=== PATIENT | male | born 1935 | race Caucasian/White ===

== ENCOUNTER 2020-05-14 14:51 | Emergency (ER) | payer MEDICARE, SELFPAY ==
[2020-05-14 15:10] VITALS: BP 152/80; PULSE 78; RESP 16; TEMP 37; O2SAT 100
--- NOTE | 2020-05-14 15:29 | ED.MALEGU ---
HPI - Male Genitourinary General Chief complaint: Urogenital-Male Stated complaint: blood in castro catheter Time Seen by Provider: 05/14/20 15:18 History of Present Illness HPI Narrative: He recently had castro catheter placed due to what sounds like hematuria and bladder outlet obstruction. He began noticing blood in his urine yesterday and today it has been dark red with some small clots. He denies any pain or fever. Related Data Home Medications Medication Instructions Recorded Confirmed buspirone 10 mg 05/14/20 duloxetine mg PO 05/14/20 lorazepam 05/14/20 tamsulosin mg PO 05/14/20 terbinafine HCl 250 mg 05/14/20 Allergies Allergy/AdvReac Type Severity Reaction Status Date / Time celecoxib Allergy Intermediate FACIAL Verified 05/14/20 15:35 RASH/REDNESS budesonide Allergy Unknown CARDIAC Verified 05/14/20 15:35 PROBLEMS iodine Allergy Unknown Unknown Verified 05/14/20 15:35 Contrast Media Allergy Intermediate TACHYCARDIA Uncoded 05/14/20 15:35 Review of Systems Review of Systems: All systems reviewed & are unremarkable except as noted in HPI and below Constitutional: Constitutional: Denies fever(s) Cardiovascular: Cardiovascular: Denies chest pain Respiratory: Respiratory: Denies cough and Denies dyspnea Gastrointestinal: Gastrointestinal: Denies abdominal pain Genitourinary: Genitourinary: Reports hematuria Musculoskeletal: Musculoskeletal: Denies back pain [facility] Family History Family History Father Family history of malignant neoplasm Other Family history of cardiovascular disease Social History Social History Smoking status: Never smoker Alcohol intake: never Gender identity (if verbalized by the patient): Male Exam Const: General: healthy appearing, no acute distress and alert Orientation/consciousness: patient oriented x3 HENMT: Head: normal to inspection Neck: Neck: normal visual inspection and no lymphadenopathy Chest: Chest palpation & inspection: no tenderness Resp: Effort & Inspection: normal respiratory effort Auscultation: clear to auscultation bilaterally, no rales, no rhonchi and no wheezes Cardio: Jugular venous distension: no JVD Rate: regular rate Rhythm: regular rhythm Heart sounds: no murmurs GI: Inspection: non-distended GI Palp: Yes Soft to palpation and No Tenderness to palpation present (GI) Urinary Catheter: Urinary Catheter: patent and draining and urine red Skin: General skin exam: normal color Neuro: General: patient oriented x3 and moves all extremities Speech: normal speech Extrem: General: no edema Psych: Appearance: well kempt Affect: normal affect Course Vital Signs Vital signs: Vital Signs Temperature 37.0 C 05/14/20 15:10 Pulse Rate 78 05/14/20 15:10 Respiratory Rate 16 05/14/20 15:10 Blood Pressure 152/80 H 05/14/20 15:10 Pulse Oximetry 100 05/14/20 15:10 Temperature 37.0 C 05/14/20 15:10 Pulse Rate 75 05/14/20 18:24 Respiratory Rate 18 05/14/20 18:24 Blood Pressure 156/78 H 05/14/20 18:24 Pulse Oximetry 100 05/14/20 18:24 Procedures Ear Wax Removal Right Ear: Cerumenolytic Used: other (hydrogenperoxide tapwater mix) Results: Re-examined: some cerumen remains TM Examination: TM(s) intact, normal appearance Ear Canal Exam: atraumatic Patient Tolerated Procedure: well Complications: no problems Technique: ear canal irrigated Additional Comments: hearing improved after procedure MDM - Male Genitourinary MDM Narrative Medical decision making narrative: UA consistent with infection. Urine pink with no clots after CBI. Given dose of ceftriaxone. Will continue antibiotics at home. He has follow-up with a urologist next week. Medical Records Attestation: I reviewed the patient's medical records. Lab Data Attest
[2020-05-14 15:58] LABS: Add Urine Microscopic? YES; Appearance Urine Clear (Clear); Bacteria Urine 1+ /hpf; Bilirubin Urine Negative (Negative); Blood Urine 2+ (Negative); Color Urine Red (Yellow); Glucose Urine UA 1+ mg/dL (Negative); Ketones Urine Trace mg/dL (Negative); Leukocyte Esterase Ur 1+ LEU/UL (Negative); Nitrate Urine Positive (Negative); Protein Urine 2+ mg/dL (Negative); RBC Urine >75 /hpf (0-2); Specific Grav Ur 1.015 (1.001-1.035); Urobilinogen Urine Negative mg/dL (<2.0); WBC Urine >75 /hpf
--- NOTE | 2020-05-14 16:11 | PC.NURSE ---
Per Dr. Craft pts bladder needs to be irrigated until clear. This RN and another RN went into pts room and irrigated bladder. Small clots and red urine came back out. Put new leg cath bag on pt. Pt tolerated procedure well. Informed Dr. Craft of this. Will continue to monitor,
[2020-05-14] MEDS: LIDOCAINE HCL 2% GEL UROJET 10 ML PKG (17:53)
[2020-05-14 18:24] VITALS: BP 156/78; PULSE 75; RESP 18; O2SAT 100
[2020-05-14 20:02] VITALS: BP 155/80; PULSE 81; RESP 16; TEMP 37.1; O2SAT 99
== END 2020-05-14 20:05 | disposition home or self-care (01) ==
PROVIDERS: Emergency Provider Emergency Medicine; PCP Family Medicine Adolescent Medicine
DX: T83.511A Infection and inflammatory reaction due to indwelling urethral catheter, initial encounter (principal); H61.21 Impacted cerumen, right ear
CPT/HCPCS: 51700; 69209; 81001; 87077; 87086; 87088; 87186; 99284; J0696

== ENCOUNTER → 2021-05-04 11:53 | Outpatient (CLI) | payer MEDICARE, SELFPAY ==
--- NOTE | ~2021-05-04 | MR_ITS ---
EXAMINATION: MR brain/brain stem wo con DATE: 05/04/2021 12:32 INDICATION: Slurred speech. Other anesthesia. TECHNIQUE: Magnetic resonance imaging (MRI) of the brain and brainstem was performed without intraven ous contrast. Sequences included sagittal and axial T1-weighted FSE, axial diffusion-weighted FS EPI, axial T2*-weighted GRE, axial T2-weighted FLAIR Propeller, and axial T2-weighted Propeller. Apparent diffusion coefficient (ADC) maps were created. COMPARISON: None. FINDINGS: There are scattered areas of nonspecific increased T2-weighted signal intensity in the cere bral white matter and shirley. There is no intracranial hemorrhage, acute infarction, or abnormal intrac ranial mass lesion. The ventricles are normal in size. The orbits are normal. The paranasal sinuses a re clear. The mastoid air cells are normal. IMPRESSION: 1. Moderate nonspecific cerebral white matter disease and pontine disease, which likely represents ch ronic small vessel ischemic disease. Reviewed, dictated and finalized at location A. IMPRESSION: 1. Moderate nonspecific cerebral white matter disease and pontine disease, whic h likely represents chronic small vessel ischemic disease.
== END ==
PROVIDERS: Visit Provider Nurse Practitioner Family
DX: R41.3 Other amnesia (principal); R93.0 Abnormal findings on diagnostic imaging of skull and head, not elsewhere classified
CPT/HCPCS: 70551

== ENCOUNTER 2022-03-25 21:56 | Emergency (ER) | payer MEDICARE, SELFPAY ==
[2022-03-25 22:00] VITALS: BP 174/79; PULSE 73; RESP 16; O2SAT 100
--- NOTE | 2022-03-25 22:48 | ED.LOWEXIN ---
HPI - Extremity Injury (Lower) General Chief Complaint: Extremity Injury, Lower Stated Complaint: LAC TO TOE - CUT WITH SCISSORS Time Seen by Provider: 03/25/22 22:08 Source: patient Mode of arrival: EMS Limitations: no limitations History of Present Illness HPI Narrative: This is a 86 year old male that presents to the ER for a laceration to the left third toe sustained just prior to arrival. Reports he was trying to cut his toenail with scissors and accidentally cut the tip of his toe. Reports bleeding and pain to the area. He is not up-to-date on tetanus. Denies decreased range of motion or numbness. Related Data Home Medications Medication Instructions Recorded Confirmed buspirone 10 mg tablet 10 mg 05/14/20 duloxetine 60 mg capsule,delayed mg PO 05/14/20 release lorazepam 0.5 mg tablet 05/14/20 tamsulosin 0.4 mg capsule mg PO 05/14/20 terbinafine HCl 250 mg tablet 250 mg 05/14/20 Allergies Allergy/AdvReac Type Severity Reaction Status Date / Time celecoxib Allergy Intermediate FACIAL Verified 05/14/20 15:35 RASH/REDNESS budesonide Allergy Unknown CARDIAC Verified 05/14/20 15:35 PROBLEMS iodine Allergy Unknown Unknown Verified 05/14/20 15:35 Contrast Media Allergy Intermediate TACHYCARDIA Uncoded 05/14/20 15:35 Review of Systems Review of Systems: CONSTITUTIONAL: Denies fever SKIN: Reports laceration NEUROLOGIC: Denies numbness All systems reviewed & are unremarkable except as noted in HPI and below PMFSH Past Medical History Medical History (Updated 03/25/22 @ 22:53 by Winnie Singh PA-C) History of anxiety History of BPH Family History Family History Father Family history of malignant neoplasm Other Family history of cardiovascular disease Social History Social History Smoking status: Never smoker Alcohol intake: never Gender identity (if verbalized by the patient): Male Exam Narrative: GENERAL: Well-appearing, well-nourished, and in no acute distress. HEAD: Normocephalic, atraumatic. EYES: EOMI. EXTREMITIES: Normal range of motion. Normal DP pulses. Left third toe with tip skin avulsed SKIN: Warm, dry, no rash. NEURO: No focal deficits. Alert and oriented x3. PSYCH: Normal mood and affect Course Vital Signs Vital signs: Vital Signs Pulse Rate 73 03/25/22 22:00 Respiratory Rate 16 03/25/22 22:00 Blood Pressure 174/79 H 03/25/22 22:00 Pulse Oximetry 100 03/25/22 22:00 Oxygen Delivery Room Air 03/25/22 22:00 Pulse Rate 73 03/25/22 22:00 Respiratory Rate 16 03/25/22 22:00 Blood Pressure 174/79 H 03/25/22 22:00 Pulse Oximetry 100 03/25/22 22:00 Oxygen Delivery Room Air 03/25/22 22:00 Procedures Laceration Laceration 1: Date: 03/25/22 Time: 22:51 Site: lower extremity Side (If applicable): left Size (cm): 1 Description: other (Skin avulsed) Depth: simple, single layer ====== Skin Level ====== ====== Subcutaneous Layer ====== ====== Muscle Layer ====== ====== Tendon Layer ====== Dressing: Wound was irrigated and bleeding controlled with silver nitrate and then bandaged MDM - Extremity Injury (Lower) MDM Narrative Medical decision making narrative: Patient presents to the emergency department after avulsing the tip skin of his left third toe. He was updated on tetanus. His wound was irrigated. He had some mild oozing of blood this was controlled with silver nitrate and his wound was bandaged. He was educated on wound care. He is to follow-up with primary care doctor. He was given warnings to the ER At present only noted to be hypertensive in the ED. Instructed to continue to monitor this and follow-up with primary for this as well Critical Care Time Critical Care Time Critical Care Time: No Discharge Plan
[2022-03-25] MEDS: TETANUS,DIPHTHERIA,AC PERTUSSIS ADULT (0.5 ML) BOOSTRIX IM (23:15)
[2022-03-25 23:29] VITALS: BP 179/83; PULSE 65; RESP 18; O2SAT 100
== END 2022-03-25 23:32 | disposition home or self-care (01) ==
PROVIDERS: Emergency Provider Emergency Medicine
DX: S91.115A Laceration without foreign body of left lesser toe(s) without damage to nail, initial encounter (principal); W27.2XXA Contact with scissors, initial encounter; Z23 Encounter for immunization
CPT/HCPCS: 12001; 90471; 90715; 99283

== ENCOUNTER 2022-11-03 14:31 | Inpatient (IN) | payer MEDICARE, SELFPAY ==
--- NOTE | ~2022-11-03 | XR_ITS ---
EXAMINATION: XR chest 2V 11/03/2022 18:50 INDICATION: Chest congestion and vomiting PROCEDURE: 2 view chest COMPARISON: 10/27/2012 FINDINGS: The lungs are clear. The cardiomediastinal silhouette is within normal limits. There are no pleural effusions. There is no pneumothorax suspected. There are multiple air-fluid levels in th e upper abdomen, suspicious for bowel obstruction. IMPRESSION: 1: No acute cardiopulmonary disease.. 2: Multiple air-fluid levels of the upper abdomen, suspicious for bowel obstruction. Reviewed, dictated and finalized at location A. MAKER IMPRESSION: 1: No acute cardiopulmonary disease.. 2: Multiple air-fluid levels of the upper abdomen, suspicious for bowel obstruc tion.
--- NOTE | ~2022-11-03 | CT_ITS ---
EXAMINATION: CT abdomen pelvis wo con DATE: 11/03/2022 19:20 INDICATION: Possible bowel obstruction. TECHNIQUE: Computed tomography (CT) of the abdomen and pelvis was performed without intravenous contr ast. The dose-length product was 314.00 mGy-cm. Automated exposure control and iterative reconstructi on technique were employed. COMPARISON: CT dated 01/15/2013. FINDINGS: Lung bases are unremarkable. Heart size normal. No significant pleural or pericardial effus ion. Study somewhat limited by motion. Status post cholecystectomy. There is a lobulated appearance t o the spleen. Status post partial left nephrectomy. There is a low-density lesion at the upper pole o f the left kidney measuring 1.9 cm. The liver, adrenal glands and right kidney are unremarkable. No hydronephrosis. No significant vascul ar abnormality. No lymphadenopathy. No free air or free fluid. There is a percutaneous drain in the b ladder. There is moderate fluid throughout the colon which may relate to diarrhea or ileus. Clinicall y correlate. No significant small bowel dilation. No free air or free fluid. No definite obstruction is identified. Severe lumbar spondylosis. Mild dextroscoliosis. IMPRESSION: 1. Distended fluid-filled colon without obstruction, possibly related to ileus or diarrhea. 2: Status post partial left nephrectomy. Low-density lesion at the upper pole of the left kidney most likely represents a cyst. Reviewed, dictated and finalized at location A. RSIDE WORKER IMPRESSION: 1. Distended fluid-filled colon without obstruction, possibly related to ileus or diarrhea. 2: Status post partial left nephrectomy. Low-density lesion at the upper pole o f the left kidney most likely represents a cyst.
[2022-11-03 16:11] VITALS: BP 112/69; PULSE 87; RESP 16; TEMP 36.7; O2SAT 100
[2022-11-03 16:40] LABS: Basophils Absolute Auto 0.1 K/mm3 (0.0-0.1); Basophils Percent Auto 0.5 % (0.2-1.2); Eosinophils Percent Auto 0.1 % (0-4.4); Hematocrit 41.5 % (42.0-52.0); Hemoglobin 14.3 g/dL (14.0-18.0); Immature Granulocyte Absolute 0.06 K/mm3 (0.00-0.031); Immature Granulocyte Percent A 0.5 % (0-0.5); Lymphocytes Absolute Auto 1.45 K/mm3 (0.9-3.2); Lymphocytes Percent Auto 11.5 % (18.3-44.2); Mean Corpuscular HGB Conc 34.5 g/dl (32-36); Mean Corpuscular Hemoglobin 28.2 pg (26-34); Mean Corpuscular Volume 81.9 fl (80-100); Mean Platelet Volume 9.4 fl (7.4-10.4); Monocytes Absolute Auto 0.6 K/mm3 (0.1-0.6); Monocytes Percent Auto 4.9 % (2.6-8.5); Neutrophils Absolute Auto 10.4 K/mm3 (1.3-6.7); Neutrophils Percent Auto 82.5 % (45.5-73.1); Platelet Count Result 200 k/mm3 (150-375); Red Blood Count 5.07 M/mm3 (4.6-6.20); Red Cell Distribution Width 14.6 % (11.5-14.5); White Blood Count 12.6 K/mm3 (4.5-10.0)
[2022-11-03 16:52] LABS: Alanine Aminotransferase 16 U/L (6-50); Albumin Level 4.1 g/dL (3.5-5.1); Alkaline Phosphatase 197 U/L (38-126); Anion Gap 10 mmol/L (8-16); Aspartate Amino Transferase 22 U/L (17-59); Bilirubin,Total 1.1 mg/dL (0.2-1.3); Blood Urea Nitrogen 17 mg/dL (9-20); Calcium 8.2 mg/dL (8.4-10.2); Carbon Dioxide 20 mmol/L (22-30); Chloride 102 mmol/L (98-107); Estimated CRCL calculation 39 ml/min; Estimated Glomerular Filt Rate 57; Glucose 96 mg/dL (65-110); Lipase 38 U/L (23-300); Potassium 2.8 mmol/L (3.4-5.0); Sodium 132 mmol/L (137-145)
[2022-11-03 17:10] LABS: Influenza A QL RT-PCR Negative (Negative); Influenza B QL RT-PCR Negative (Negative); SARS-CoV-2 RNA PCR Negative
[2022-11-03 17:44] LABS: Add Urine Microscopic? YES; Appearance Urine Clear (Clear); Bilirubin Urine Negative (Negative); Blood Urine Trace-Intact (Negative); Color Urine Yellow (Yellow); Glucose Urine UA Negative (Negative); Ketones Urine Negative (Negative); Leukocyte Esterase Ur 1+ LEU/UL (Negative); Nitrate Urine Positive (Negative); Protein Urine Trace mg/dL (Negative); Urobilinogen Urine 0.2 mg/dL (<2.0)
--- NOTE | 2022-11-03 17:48 | ECG_ITS ---
Measurements Intervals [place] Rate: 77 P: 35 IN: 141 QRS: -69 QRSD: 129 T: -45 QT: 432 QTc: 490 Interpretive Statements SINUS RHYTHM RIGHT BUNDLE BRANCH BLOCK LEFT ANTERIOR FASCICULAR BLOCK CANNOT RULE OUT SEPTAL INFARCT, AGE INDETERMINATE ST-T WAVE ABNORMALITY IN INFERIOR LEADS- CONSIDER ISCHEMIA BASELINE ARTIFACT- III, AVF, V1-V2, V4-V6 ABNORMAL ECG NO PREVIOUS ECG AVAILABLE FOR COMPARISON Electronically Signed On 11-03-2022 19:08:41 [employer]ANT TEACH[employer] by Raudel Rodríguez D.O.
[2022-11-03 17:49] LABS: Bacteria Urine 1+ /hpf; Mucus Urine Rare /lpf; WBC Urine 31-50 /hpf
--- NOTE | 2022-11-03 17:56 | ED.URI ---
HPI - URI/Sore Throat General Chief Complaint: Upper Respiratory Infection <Gypsy Nunes MD - Last Filed: 11/03/22 22:10> Stated Complaint: flu symptoms <Gypsy Nunes MD - Last Filed: 11/03/22 22:10> Time Seen by Provider: 11/03/22 17:55 <Gypsy Nunes MD - Last Filed: 11/03/22 22:10> Source: patient and family <Gypsy Nunes MD - Last Filed: 11/03/22 22:10> Mode of arrival: EMS <Gypsy Nunes MD - Last Filed: 11/03/22 22:10> Limitations: no limitations <Gypsy Nunes MD - Last Filed: 11/03/22 22:10> History of Present Illness HPI Narrative: Patient is an 87-year-old male with dementia, bladder outlet obstruction, chronic indwelling suprapubic catheter, presenting to the emergency department for evaluation of fever, rigors, vomiting. Most of the history is provided by the patient's daughter who I spoke with at bedside as well as report from [facility]. Patient resides at [place], was noted to have several episodes of nonbloody, nonbilious emesis this morning. Patient has not had any emesis since this morning, and denies any abdominal pain. Patient's daughter states he has had a fever greater than 101 Fahrenheit for which she was given Tylenol this morning. He has had rigors and chills. The time of assessment, patient denies any acute complaint but is not terribly reliable historian. He is oriented to person and place, not to time. Patient denies any headache pain, chest pain, cough, abdominal pain. He denies current nausea. No recurrent emesis since being in the hospital today. Patient denies diarrhea. He has a chronic indwelling suprapubic catheter, sees a urologist at [facility]. Does have a history of urinary tract infection in the past, has not been on any antibiotic therapy recently. Patient also with mild shortness of breath, mild cough. He reports rhinorrhea and congestion as well. <Gypsy Nunes MD - Last Filed: 11/03/22 22:10> Related Data Home Medications: Home Medications Medication Instructions Recorded Confirmed buspirone 10 mg tablet 10 mg 05/14/20 duloxetine 60 mg capsule,delayed mg PO 05/14/20 release lorazepam 0.5 mg tablet 05/14/20 tamsulosin 0.4 mg capsule mg PO 05/14/20 terbinafine HCl 250 mg tablet 250 mg 05/14/20 <Gypsy Nunes MD - Last Filed: 11/03/22 22:10> Allergies/Adverse Reactions: Allergies Allergy/AdvReac Type Severity Reaction Status Date / Time celecoxib Allergy Intermediate FACIAL Verified 11/03/22 18:02 RASH/REDNESS budesonide Allergy Unknown CARDIAC Verified 11/03/22 18:02 PROBLEMS iodine Allergy Unknown Unknown Verified 11/03/22 18:02 Contrast Media Allergy Intermediate TACHYCARDIA Uncoded 05/14/20 15:35 <Gypsy Nunes MD - Last Filed: 11/03/22 22:10> Review of Systems Review of Systems: CONSTITUTIONAL: Reports fever, rigors, chills CARDIOVASCULAR: Denies chest pain RESPIRATORY: Reports cough and shortness of breath GASTROINTESTINAL: Denies abdominal pain, reports earlier nausea and vomiting which is since resolved SKIN: Denies rash MUSCULOSKELETAL: Denies back pain NEUROLOGIC: Denies headache <Gypsy Nunes MD - Last Filed: 11/03/22 22:10> [facility] Past Medical History Medical History: Medical History (Updated 11/03/22 @ 22:02 by Gypsy Nunes MD) History of anxiety History of BPH Suprapubic catheter <Gypsy Nunes MD - Last Filed: 11/03/22 22:10> Family History Family History: Family History Father Family history of malignant neoplasm Other Family history of cardiovascular disease <Gypsy Nunes MD - Last Filed: 11/03/22 22:10> Social History Social History: Social History Smoking status: Never smoker Alcohol intake: never Gender identity (if verbalized by the patient): Male <Gypsy Meng
[2022-11-03 18:01] VITALS: BP 163/81; PULSE 77; RESP 21; O2SAT 100
[2022-11-03] MEDS: POTASSIUM CHLORIDE 20 MEQ PACKET (FOR LIQUID) 40 MEQ PO ×2 (18:09→23:00)
[2022-11-03 18:13] VITALS: BP 163/81; PULSE 78; RESP 16; O2SAT 97
[2022-11-03 18:45] LABS: Lactic Acid Reflex 1.9 mmol/L (0.7-2.0)
[2022-11-03 18:46] LABS: Magnesium 1.9 mg/dL (1.6-2.3)
[2022-11-03 19:47] LABS: Fractional Inspired Oxygen 21 %; HCO3 VBG 18.9 mEq/l (24.0-30.0); PO2 VBG 34.6 mmHg (35.0-45.0)
[2022-11-03 19:49] LABS: Device ROOM AIR; pH VBG 7.479 (7.300-7.400)
[2022-11-03 20:10] LABS: NT Pro B Type Natriuretic Pept 3980 pg/mL (5-100)
[2022-11-03 20:30] VITALS: BP 112/72; PULSE 10; RESP 18; TEMP 36.7; O2SAT 98
[2022-11-03] MEDS: LACTATED RINGERS 1,000 ML 65 ML IV CONT (20:30)
--- NOTE | 2022-11-03 23:07 | PM.IMHP ---
H&P: HPI History of Present Illness Date/Time: 11/03/22 22:07 Chief Complaint: Vomiting Narrative: 87-year-old male with past medical history of dementia, hypertension, lymphocytic colitis, coronary artery disease and chronic suprapubic catheter who presented to the ER from [facility] via private vehicle. Patient's daughter brought the patient in due to a couple of episodes of emesis, 1 loose stool and reported chest congestion. Source of information comes from the ER physician report and the daughter who is at bedside. The symptoms started this morning. Her company by fever greater than 101? at home. He received Tylenol and repeat temperature was 101.5. By the time the patient arrived to the ER the patient was afebrile. Daughter reported the patient was having rigors and chills. He denies any abdominal pain. At the time of my exam the patient's bladder was distended. He had a small amount of purulence surrounding his suprapubic catheter. The patient has had a suprapubic catheter since 2019. He does not have his catheter draining into a bag. Instead he periodically opens his catheter several times a day. He admits that he may be forgetting to empty his bladder as much as he should. Patient was only oriented to person and place. He denied any current nausea and states that he is hungry. His daughter reports that the patient has been losing weight quite significantly over the last couple of years. The patient states that he [facility] not [facility] the [facility] at the [facility] and has not been eating much. The daughter thinks that the patient has not be eating as much because he has been stressed out about his who was [facility]. A daughter reports that the patient has not been taking his meds as directed. Evidently staff offers him his meds but he does not always cooperate with taking them. The patient was also reportedly having some shortness of breath and cough. He has chronic rhinorrhea and frequent congestion. His influenza and COVID PCR were negative in the ER. UA was consistent with UTI. Patient was placed on empiric antibiotic therapy with Rocephin. Patient was also found to have hypokalemia and received a total of 80 mEq of potassium chloride. That are reports that the patient has frequent loose stools and takes loperamide daily to prevent diarrhea. Review of Systems Review of Systems: Review of systems was limited from the patient due to his dementia. [facility] Past Medical History Medical History (Updated 11/04/22 @ 08:44 by Kay Deras DO) BPH (benign prostatic hyperplasia) CVA (cerebral vascular accident) Daughter reports MRI demonstrate evidence of old infarcts Dementia Essential hypertension History of anxiety Lymphocytic colitis Orthostatic hypotension Renal cell carcinoma Surgical History Surgical History (Updated 11/04/22 @ 08:40 by Kay Deras DO) History of partial nephrectomy Left History of prostatectomy (12/2020) Suprapubic catheter (12/2020) Family History Family History Father Family history of malignant neoplasm Other Family history of cardiovascular disease Social History Social History (Updated 11/04/22 @ 08:42 by Kay Deras DO) Social History: The patient lives at [facility] since February 2019. His of 68 years lives in [facility]. The patient's 2 daughters are his and his 's guardian. He is a lifelong nonsmoker. He drinks 2 bottles of beer a week. 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 Code status: Full code Smoking status: Never smoker Second hand tobacco smoke exposure: No Alcohol intake: current Drinks per week: 2 Substance use: never Lack of Transportation: No Lack of Food: Never True Current Housing: I Have Housing Concerned About Future Housing: No Difficulty Paying Gas/Electr
[2022-11-03 23:30] LABS: Troponin I 0.038 ng/mL (0.000-0.034)
[2022-11-04] VITALS (12 sets, daily range): BP systolic 129–158; BP diastolic 61–80; PULSE 64–78; RESP 18–22; TEMP 35.9–36.8; O2SAT 98–100; BMI 20.9
[2022-11-04] MEDS: LACTATED RINGERS 1,000 ML 65 ML IV CONT (04:58)
[2022-11-04] MEDS: DONEPEZIL HCL 10 MG TABLET PO (09:11)
[2022-11-04] MEDS: PANTOPRAZOLE SODIUM IV 40 MG VIAL IV PUSH (09:12)
[2022-11-04] MEDS: FLUDROCORTISONE ACETATE 0.1 MG TABLET PO (09:12)
[2022-11-04] MEDS: DULoxetine HCL 60 MG CAPSULE.DR PO (09:12)
--- NOTE | 2022-11-04 09:48 | PM.IMPN ---
Progress Note: A&P Assessment and Plan (1) Sepsis: Code(s): A41.9 - Sepsis, unspecified organism Status: Acute Assessment and Plan: Sepsis resolving. White blood cell count trending down. Patient is afebrile. Patient has stable blood pressure, respirations and heart rate. (2) Urinary tract infection associated with cystostomy catheter: Code(s): T83.510A - Infection and inflammatory reaction due to cystostomy catheter, initial encounter; N39.0 - Urinary tract infection, site not specified Status: Acute Assessment and Plan: Abnormal UA. UA nitrite positive, leukocyte esterase +1, RBCs 6-10, white blood cell 31-50 and +1 urine bacteria. Patient started on Rocephin Urine and blood cultures pending Adjust therapy to culture results Patient has chronic suprapubic catheter Consult urology for suprapubic catheter change IV Fluid hydration (3) Acute hypokalemia: Code(s): E87.6 - Hypokalemia Status: Acute Assessment and Plan: The patient had acute hypokalemia and received replacement in the ER. Patient was given 80 mEq potassium in the ER. Repeat BMP has been ordered. The patient's magnesium level is normal 1.9 Continue home potassium (4) Ileus: Code(s): K56.7 - Ileus, unspecified Status: Acute Assessment and Plan: On arrival to the ED patient's family and him complaint of diarrhea. CT demonstrated fluid-filled colon without obstruction, possibly related to ileus or diarrhea. Patient has history of lymphocytic colitis which could be related to CT findings Continue loperamide Advance diet as tolerated (5) BPH (benign prostatic hyperplasia): Qualifiers: Lower urinary tract symptom detail: urinary retention Lower urinary tract symptom presence: symptoms present Qualified Code(s): N40.1 - Benign prostatic hyperplasia with lower urinary tract symptoms; R33.8 - Other retention of urine Code(s): N40.0 - Benign prostatic hyperplasia without lower urinary tract symptoms Status: Acute Assessment and Plan: Chronic Subjective Date/time seen: 11/04/22 09:48 Interval history: 87-year-old male with a history of dementia, bladder outlet obstruction, chronic indwelling suprapubic catheter, presenting to the emergency department for evaluation of fever, rigors, vomiting. Patient was found to have UTI and has been treated with Rocephin. Talked with patient today and he is in good spirits and is very adamant about being discharged. Daughter is in the room and patient okayed that discussion happened in front of daughter. Discussed with patient importance of handwashing and hygiene when dealing with suprapubic catheter as well as frequent emptying of the catheter. Patient denies chest pain, shortness a breath, dizziness, fever, nausea, vomiting an lower extremity edema. Patient also came in with diarrhea although he does have history of chronic diarrhea due to lymphocytic colitis. Review of Systems Review of Systems: All systems reviewed & are unremarkable except as noted in HPI and below Exam Narrative: GENERAL: Comfortable, no acute distress HENMT: moist mucous membranes EYES: EOM intact b/l NECK: no lymphadenopathy RESPIRATORY: clear to auscultation CARDIO: RRR GI: Suprapubic catheter present, soft, nontender, bowel sounds present SKIN: no rashes EXTREMITIES: no edema, redness or tenderness Objective Data Vital Signs Vital Signs: Vital Signs - 24 hr 11/03/22 16:11 11/03/22 18:01 11/03/22 18:13 Temperature 98.1 F Pulse Rate 87 77 78 Respiratory Rate 16 21 H 16 Blood Pressure 112/69 163/81 H 163/81 H Pulse Oximetry 100 100 97 Oxygen Delivery Room Air 11/04/22 00:25 11/04/22 00:28 11/04/22 00:33 Temperature 98.2 F Pulse Rate 77 Respiratory Rate 22 H Blood Pressure 153/80 H 129/68 139/62 Pulse Oximetry 100 Oxygen Delivery 11/04/22 04:00 11/03/22 2
[2022-11-04 10:02] LABS: Hematocrit 37.6 % (42.0-52.0); Hemoglobin 12.6 g/dL (14.0-18.0); Mean Corpuscular HGB Conc 33.5 g/dl (32-36); Mean Corpuscular Hemoglobin 28.7 pg (26-34); Mean Corpuscular Volume 85.6 fl (80-100); Mean Platelet Volume 9.1 fl (7.4-10.4); Platelet Count Result 170 k/mm3 (150-375); Red Blood Count 4.39 M/mm3 (4.6-6.20); White Blood Count 6.2 K/mm3 (4.5-10.0)
[2022-11-04 10:16] LABS: Alanine Aminotransferase 12 U/L (6-50); Albumin Level 3.4 g/dL (3.5-5.1); Alkaline Phosphatase 132 U/L (38-126); Anion Gap 5 mmol/L (8-16); Aspartate Amino Transferase 19 U/L (17-59); Bilirubin,Total 0.8 mg/dL (0.2-1.3); Blood Urea Nitrogen 18 mg/dL (9-20); Calcium 7.9 mg/dL (8.4-10.2); Carbon Dioxide 23 mmol/L (22-30); Chloride 106 mmol/L (98-107); Estimated CRCL calculation 33 ml/min; Estimated Glomerular Filt Rate 52; Glucose 94 mg/dL (65-110); Potassium 3.3 mmol/L (3.4-5.0); Sodium 134 mmol/L (137-145)
[2022-11-04] MEDS: POTASSIUM CHLORIDE 20 MEQ TABLET.ER PO ×2 (11:56→17:44)
--- NOTE | 2022-11-04 15:26 | WPDURCON ---
Assessment and Plan Assessment and plan (1) Urinary tract infection associated with cystostomy catheter: Code(s): T83.510A - Infection and inflammatory reaction due to cystostomy catheter, initial encounter; N39.0 - Urinary tract infection, site not specified Status: Acute Assessment and Plan: Continue IV antibiotics, tailor to culture results. Irrigate SP tube PRN. (2) BPH (benign prostatic hyperplasia): Qualifiers: Lower urinary tract symptom detail: urinary retention Lower urinary tract symptom presence: symptoms present Qualified Code(s): N40.1 - Benign prostatic hyperplasia with lower urinary tract symptoms; R33.8 - Other retention of urine Code(s): N40.0 - Benign prostatic hyperplasia without lower urinary tract symptoms Status: Acute (3) Retention, urine: Code(s): R33.9 - Retention of urine, unspecified Status: Acute Assessment and Plan: SP tube changed with a 16fr catheter today, previous SP tube removed prior to insertion of new one without difficulty. Betadine swabs used prior to insertion of new tube. No further evaluation needed. Resume monthly home heat SP tube changes on or neat 12/05/22. Urology Consult Note HPI Date Seen: 11/04/22 Time Seen: 15:26 Requesting Physician: Kay Deras DO Primary Care Provider: Juan Guardado Consult Narrative Reason for consult: SP tube exchange/UTI Narrative: Ravindra Arellano is a 87 year old male who has a history of bladder outlet obstruction, chronic indwelling suprapubic catheter, presenting to the emergency department for evaluation of fever, rigors, vomiting. UA appears to show a UTI, urine and blood cultures pending. He is afebrile, WBC is 6.2, creatinine 1.30 and needs an SP tube change as we were consulted to do so. The patient's daughter is at the bedside and states that home health changes his SP tube monthly at home and it was last changed in mid September of 2022. CT 11/03/21 shows partial left nephrectomy and SP tube in place. FOR[facility]LY [facility] Past Medical History Medical History BPH (benign prostatic hyperplasia) CVA (cerebral vascular accident) Daughter reports MRI demonstrate evidence of old infarcts Dementia Essential hypertension History of anxiety Lymphocytic colitis Orthostatic hypotension Renal cell carcinoma Surgical History Surgical History History of partial nephrectomy Left History of prostatectomy (12/2020) Suprapubic catheter (12/2020) Family History Family History Father Family history of malignant neoplasm Other Family history of cardiovascular disease Social History Social History Social History: The patient lives at [facility] since February 2019. His of 68 years lives in [facility]. The patient's 2 daughters are his and his 's guardian. He is a lifelong nonsmoker. He drinks 2 bottles of beer a week. 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 Code status: Full code Smoking status: Never smoker Second hand tobacco smoke exposure: No Alcohol intake: current Drinks per week: 2 Substance use: never Lack of Transportation: No Lack of Food: Never True Current Housing: I Have Housing Concerned About Future Housing: No Difficulty Paying Gas/Electric Bills: No Difficulty Paying for Meds: No Currently Unemployed: No Education: High School Diploma/GED Difficulty w/ Childcare or Family Care: No Gender identity (if verbalized by the patient): Male Spiritual care concerns: No Meds Home Medications and Allergies Home Medications Medication Instructions Recorded Confirmed Type duloxetine 60 mg capsule,delayed 60 mg PO QAM 05/14/20 11/04/22 History
[2022-11-04] MEDS: amLODIPine BESYLATE 2.5 MG TABLET PO (21:20)
[2022-11-04] MEDS: MIRTAZAPINE 15 MG TABLET PO (21:20)
[2022-11-05] VITALS (9 sets, daily range): BP systolic 137–155; BP diastolic 63–71; PULSE 61–85; RESP 16–18; TEMP 36.6–36.8; O2SAT 99–100
[2022-11-05] MEDS: DULoxetine HCL 60 MG CAPSULE.DR PO (09:13)
[2022-11-05] MEDS: POTASSIUM CHLORIDE 20 MEQ TABLET.ER PO ×2 (09:13→18:18)
[2022-11-05] MEDS: FLUDROCORTISONE ACETATE 0.1 MG TABLET PO (09:13)
[2022-11-05] MEDS: DONEPEZIL HCL 10 MG TABLET PO (09:14)
[2022-11-05] MEDS: PANTOPRAZOLE SODIUM IV 40 MG VIAL IV PUSH (09:14)
--- NOTE | 2022-11-05 09:30 | P.PNIM_ITS ---
Progress Note: A&P Assessment and Plan (1) Sepsis: Code(s): A41.9 - Sepsis, unspecified organism Status: Acute Assessment and Plan: Sepsis resolving. White blood cell count trending down. Patient is afebrile. Patient has stable blood pressure, respirations and heart rate. (2) Urinary tract infection associated with cystostomy catheter: Code(s): T83.510A - Infection and inflammatory reaction due to cystostomy catheter, initial encounter; N39.0 - Urinary tract infection, site not specified Status: Acute Assessment and Plan: Abnormal UA. UA nitrite positive, leukocyte esterase +1, RBCs 6-10, white blood cell 31-50 and +1 urine bacteria. * Patient started on Rocephin * Urine and blood cultures pending * Adjust therapy to culture results * Patient has chronic suprapubic catheter * Consult urology for suprapubic catheter change * 11/05/22 patient had suprapubic catheter exchanged yesterday by urology. * Urine culture positive for E coli. * E coli sensitive to ceftriaxone, continue therapy * IV Fluid hydration * Plan to discharge tomorrow on cefdinir. (3) Acute hypokalemia: Code(s): E87.6 - Hypokalemia Status: Acute Assessment and Plan: The patient had acute hypokalemia and received replacement in the ER. * Patient was given 80 mEq potassium in the ER. * Repeat BMP has been ordered. And potassium was 3.3 * The patient's magnesium level is normal 1.9 * Continue home potassium * Replenish potassium as needed. (4) Ileus: Code(s): K56.7 - Ileus, unspecified Status: Acute Assessment and Plan: On arrival to the ED patient's family and him complaint of diarrhea. * CT demonstrated fluid-filled colon without obstruction, possibly related to ileus or diarrhea. * Patient has history of lymphocytic colitis which could be related to CT findings * Continue loperamide * Advance diet as tolerated (5) BPH (benign prostatic hyperplasia): Qualifiers: Lower urinary tract symptom detail: urinary retention Lower urinary tract symptom presence: symptoms present Qualified Code(s): N40.1 - Benign p rostatic hyperplasia with lower urinary tract symptoms; R33.8 - Other retention of urine Code(s): N40.0 - Benign prostatic hyperplasia without lower urinary tract symptoms Status: Acute Assessment and Plan: Chronic Subjective Date/time seen: 11/05/22 09:30 Interval history: 87-year-old male with a history of dementia, bladder outlet obstruction, chronic indwelling suprapubic catheter, presenting to the emergency department for evaluation of fever, rigors, vomiting. Patient was found to have UTI and has been treated with Rocephin. Patient feeling great today and ready to be discharged. Patient denies headache, dizziness, nausea, vomiting, chest pain, shortness a breath, urinary symptoms and abdominal pain. Review of Systems Review of Systems: All systems reviewed & are unremarkable except as noted in HPI and below Exam Narrative: GENERAL: Comfortable, no acute distress HENMT: moist mucous membranes EYES: EOM intact b/l NECK: no lymphadenopathy RESPIRATORY: clear to auscultation CARDIO: RRR GI: soft, nontender, bowel sounds present SKIN: no rashes EXTREMITIES: no edema, redness or tenderness Objective Data Vital Signs Vital Signs: Vital Signs - 24 hr 11/04/22 12:00 11/04/22 13:46 11/04/22
--- NOTE | 2022-11-05 09:30 | PM.IMPN ---
Progress Note: A&P Assessment and Plan (1) Sepsis: Code(s): A41.9 - Sepsis, unspecified organism Status: Acute Assessment and Plan: Sepsis resolving. White blood cell count trending down. Patient is afebrile. Patient has stable blood pressure, respirations and heart rate. (2) Urinary tract infection associated with cystostomy catheter: Code(s): T83.510A - Infection and inflammatory reaction due to cystostomy catheter, initial encounter; N39.0 - Urinary tract infection, site not specified Status: Acute Assessment and Plan: Abnormal UA. UA nitrite positive, leukocyte esterase +1, RBCs 6-10, white blood cell 31-50 and +1 urine bacteria. Patient started on Rocephin Urine and blood cultures pending Adjust therapy to culture results Patient has chronic suprapubic catheter Consult urology for suprapubic catheter change 11/05/22 patient had suprapubic catheter exchanged yesterday by urology. Urine culture positive for E coli. E coli sensitive to ceftriaxone, continue therapy IV Fluid hydration Plan to discharge tomorrow on cefdinir. (3) Acute hypokalemia: Code(s): E87.6 - Hypokalemia Status: Acute Assessment and Plan: The patient had acute hypokalemia and received replacement in the ER. Patient was given 80 mEq potassium in the ER. Repeat BMP has been ordered. And potassium was 3.3 The patient's magnesium level is normal 1.9 Continue home potassium Replenish potassium as needed. (4) Ileus: Code(s): K56.7 - Ileus, unspecified Status: Acute Assessment and Plan: On arrival to the ED patient's family and him complaint of diarrhea. CT demonstrated fluid-filled colon without obstruction, possibly related to ileus or diarrhea. Patient has history of lymphocytic colitis which could be related to CT findings Continue loperamide Advance diet as tolerated (5) BPH (benign prostatic hyperplasia): Qualifiers: Lower urinary tract symptom detail: urinary retention Lower urinary tract symptom presence: symptoms present Qualified Code(s): N40.1 - Benign prostatic hyperplasia with lower urinary tract symptoms; R33.8 - Other retention of urine Code(s): N40.0 - Benign prostatic hyperplasia without lower urinary tract symptoms Status: Acute Assessment and Plan: Chronic Subjective Date/time seen: 11/05/22 09:30 Interval history: 87-year-old male with a history of dementia, bladder outlet obstruction, chronic indwelling suprapubic catheter, presenting to the emergency department for evaluation of fever, rigors, vomiting. Patient was found to have UTI and has been treated with Rocephin. Patient feeling great today and ready to be discharged. Patient denies headache, dizziness, nausea, vomiting, chest pain, shortness a breath, urinary symptoms and abdominal pain. Review of Systems Review of Systems: All systems reviewed & are unremarkable except as noted in HPI and below Exam Narrative: GENERAL: Comfortable, no acute distress HENMT: moist mucous membranes EYES: EOM intact b/l NECK: no lymphadenopathy RESPIRATORY: clear to auscultation CARDIO: RRR GI: soft, nontender, bowel sounds present SKIN: no rashes EXTREMITIES: no edema, redness or tenderness Objective Data Vital Signs Vital Signs: Vital Signs - 24 hr 11/04/22 12:00 11/04/22 13:46 11/04/22 16:00 Temperature 96.6 F L Pulse Rate 71 71 66 Respiratory Rate 20 Blood Pressure 146/66 H Pulse Oximetry 100 11/04/22 19:44 11/04/22 20:00 11/05/22 00:00 Temperature 97.2 F L Pulse Rate 73 78 79 Respiratory Rate 20 Blood Pressure 158/76 H Pulse Oximetry 98 11/05/22 04:00 11/05/22 05:50 11/05/22 08:00 Temperature 97.9 F Pulse Rate 65 75 74 Respiratory Rate 18 Blood Pressure 137/67 Pulse Oximetry 99 Intake/Output Intake/Output: Intake & Output 11/02/22 11/03/22 11/04/22 11/05/22 2
[2022-11-05 09:49] LABS: Hematocrit 38.1 % (42.0-52.0); Hemoglobin 12.5 g/dL (14.0-18.0); Mean Corpuscular HGB Conc 32.8 g/dl (32-36); Mean Corpuscular Hemoglobin 28.7 pg (26-34); Mean Corpuscular Volume 87.6 fl (80-100); Mean Platelet Volume 9.4 fl (7.4-10.4); Platelet Count Result 161 k/mm3 (150-375); Red Blood Count 4.35 M/mm3 (4.6-6.20); Red Cell Distribution Width 14.7 % (11.5-14.5); White Blood Count 4.4 K/mm3 (4.5-10.0)
[2022-11-05 10:18] LABS: Anion Gap 6 mmol/L (8-16); Blood Urea Nitrogen 13 mg/dL (9-20); Calcium 7.8 mg/dL (8.4-10.2); Carbon Dioxide 22 mmol/L (22-30); Chloride 110 mmol/L (98-107); Estimated CRCL calculation 33 ml/min; Estimated Glomerular Filt Rate 52; Glucose 90 mg/dL (65-110); Potassium 3.1 mmol/L (3.4-5.0); Sodium 138 mmol/L (137-145)
[2022-11-05] MEDS: POTASSIUM CHLORIDE 20 MEQ PACKET (FOR LIQUID) 40 MEQ PO (16:35)
[2022-11-05] MEDS: amLODIPine BESYLATE 2.5 MG TABLET PO (20:58)
[2022-11-05] MEDS: MIRTAZAPINE 15 MG TABLET PO (20:59)
[2022-11-06] VITALS: PULSE 57
[2022-11-06 04:00] VITALS: PULSE 56
[2022-11-06 05:49] VITALS: BP 163/74; PULSE 62; RESP 20; TEMP 36.6; O2SAT 98
[2022-11-06 06:03] LABS: Hemoglobin 12.1 g/dL (14.0-18.0); Mean Corpuscular HGB Conc 33.6 g/dl (32-36); Mean Corpuscular Hemoglobin 28.5 pg (26-34); Mean Corpuscular Volume 84.9 fl (80-100); Mean Platelet Volume 9.3 fl (7.4-10.4); Platelet Count Result 162 k/mm3 (150-375); Red Blood Count 4.24 M/mm3 (4.6-6.20); Red Cell Distribution Width 14.7 % (11.5-14.5); White Blood Count 4.4 K/mm3 (4.5-10.0)
[2022-11-06 06:12] LABS: Alanine Aminotransferase 12 U/L (6-50); Albumin Level 3.3 g/dL (3.5-5.1); Alkaline Phosphatase 133 U/L (38-126); Anion Gap 4 mmol/L (8-16); Aspartate Amino Transferase 21 U/L (17-59); Bilirubin,Total 0.5 mg/dL (0.2-1.3); Blood Urea Nitrogen 16 mg/dL (9-20); Calcium 7.9 mg/dL (8.4-10.2); Carbon Dioxide 23 mmol/L (22-30); Chloride 109 mmol/L (98-107); Estimated CRCL calculation 30 ml/min; Estimated Glomerular Filt Rate 48; Glucose 92 mg/dL (65-110); Magnesium 2.2 mg/dL (1.6-2.3); Potassium 3.4 mmol/L (3.4-5.0); Sodium 136 mmol/L (137-145)
[2022-11-06 08:00] VITALS: PULSE 68
[2022-11-06] MEDS: DONEPEZIL HCL 10 MG TABLET PO (08:12)
[2022-11-06] MEDS: DULoxetine HCL 60 MG CAPSULE.DR PO (08:13)
[2022-11-06] MEDS: FLUDROCORTISONE ACETATE 0.1 MG TABLET PO (08:13)
[2022-11-06] MEDS: POTASSIUM CHLORIDE 20 MEQ TABLET.ER PO (08:13)
[2022-11-06] MEDS: PANTOPRAZOLE SODIUM IV 40 MG VIAL IV PUSH (08:13)
[2022-11-06] MEDS: ENOXAPARIN 40 MG/0.4 ML SYRINGE SUB-Q (08:13)
--- NOTE | 2022-11-06 11:15 | PC.NURSE ---
Called assisted living facility [facility] to give an updated report since patient is discharging back and no answer at this time.
--- NOTE | 2022-11-06 11:31 | PC.NURSE ---
Internet Marketing Coordinator called [facility] and spoke with staff member regarding patients discharge here.
--- NOTE | 2022-11-06 11:46 | PM.DS ---
DS: Admitting Diagnosis Discharge Date 11/06/22 Admitting Diagnosis UTI DS: Discharge Diagnosis Discharge Diagnosis (1) Sepsis: Code(s): A41.9 - Sepsis, unspecified organism Status: Acute Assessment and Plan: Sepsis resolved (2) Urinary tract infection associated with cystostomy catheter: Code(s): T83.510A - Infection and inflammatory reaction due to cystostomy catheter, initial encounter; N39.0 - Urinary tract infection, site not specified Status: Acute Assessment and Plan: Abnormal UA. UA nitrite positive, leukocyte esterase +1, RBCs 6-10, white blood cell 31-50 and +1 urine bacteria. Patient started on Rocephin Urine and blood cultures pending Adjust therapy to culture results Patient has chronic suprapubic catheter Consult urology for suprapubic catheter change 11/05/22 patient had suprapubic catheter exchanged yesterday by urology. Urine culture positive for E coli. E coli sensitive to ceftriaxone, continue therapy 11/06/22discharge on cefdinir. (3) Acute hypokalemia: Code(s): E87.6 - Hypokalemia Status: Acute Assessment and Plan: The patient had acute hypokalemia and received replacement in the ER. Patient was given 80 mEq potassium in the ER. Repeat BMP has been ordered. And potassium was 3.3 The patient's magnesium level is normal 1.9 Continue home potassium Replenish potassium as needed. (4) Ileus: Code(s): K56.7 - Ileus, unspecified Status: Acute Assessment and Plan: On arrival to the ED patient's family and him complaint of diarrhea. CT demonstrated fluid-filled colon without obstruction, possibly related to ileus or diarrhea. Patient has history of lymphocytic colitis which could be related to CT findings Continue loperamide Advance diet as tolerated (5) BPH (benign prostatic hyperplasia): Qualifiers: Lower urinary tract symptom detail: urinary retention Lower urinary tract symptom presence: symptoms present Qualified Code(s): N40.1 - Benign prostatic hyperplasia with lower urinary tract symptoms; R33.8 - Other retention of urine Code(s): N40.0 - Benign prostatic hyperplasia without lower urinary tract symptoms Status: Acute Assessment and Plan: Chronic DS: Summary Hospital Course Reason for hospitalization: UTI Hospital Course: 87-year-old male with past medical history of dementia, hypertension, lymphocytic colitis, coronary artery disease and chronic suprapubic catheter who presented to the ER from [facility] via private vehicle.??Chief complaint was fever and chills, emesis, 1 loose stool and chest congestion. Patient has history of suprapubic catheter since 2019. Patient drained his catheter himself periodically. UA was consistent with UTI. Patient was started on Rocephin. Patient was found to have hypokalemia on presentation was replaced with potassium. Patient has complained of loose stools but has a diagnosis of lymphocytic colitis. CT consistent with this diagnosis. Urology was consulted patient's suprapubic catheter was replaced on 11/04/2022. Urine culture came back positive for E coli and was sensitive to Rocephin. Patient was discharged home on cefdinir and will have antibiotic therapy for total of 7 days. On discharge patient had no complaints and was very eager to be discharged. Time Spent with Patient Time attestation: Total time spent providing and/or coordinating discharge services: Exam Narrative: GENERAL: Comfortable, no acute distress, thin HENMT: moist mucous membranes EYES: EOM intact b/l NECK: no lymphadenopathy RESPIRATORY: clear to auscultation CARDIO: RRR GI: soft, nontender, bowel sounds present, suprapubic catheter in place and line pain SKIN: no rashes EXTREMITIES: no edema, redness or tenderness DS: Data Data Completed and Pending Labs on day of discharge: Labs from last 24 hours
== END 2022-11-06 11:15 | DRG 698 ==
LOC: ANHED 22:02 → ANH3MED 23:51
PROVIDERS: Emergency Medicine; Admitting Provider Internal Medicine; Emergency Provider Emergency Medicine; Visit Provider Internal Medicine Critical Care Medicine
DX: T83.510A Infection and inflammatory reaction due to cystostomy catheter, initial encounter (principal); A41.9 Sepsis, unspecified organism; N39.0 Urinary tract infection, site not specified; K56.7 Ileus, unspecified; B96.20 Unspecified Escherichia coli [E. coli] as the cause of diseases classified elsewhere; R33.8 Other retention of urine; E87.6 Hypokalemia; Z20.822 Contact with and (suspected) exposure to COVID-19; N40.1 Benign prostatic hyperplasia with lower urinary tract symptoms; I25.10 Atherosclerotic heart disease of native coronary artery without angina pectoris; F03.90 Unspecified dementia, unspecified severity, without behavioral disturbance, psychotic disturbance, mood disturbance, and anxiety; I10 Essential (primary) hypertension; Z85.53 Personal history of malignant neoplasm of renal pelvis
CPT/HCPCS: 36415; 71046; 74176; 80048; 80053; 81001; 82803; 83605; 83690; 83735; 83880; 84484; 85025; 85027; 87040; 87077; 87086; 87186; 87636; 93005; 96361; 96365; 96366; 96375; 96376; 99285; A9270; C9113; G0378; J0696; J1650; J7120

== ENCOUNTER 2023-11-23 19:31 | Emergency (ER) | payer MEDICARE, SELFPAY ==
--- NOTE | ~2023-11-23 | XR_ITS ---
EXAMINATION: XR femur LT min 2V DATE: 11/23/2023 20:17 INDICATION: Left thigh pain. Fall. TECHNIQUE: 2 views of left femur on 5 radiographs were obtained. COMPARISON: None. FINDINGS: Bone alignment is normal. No fracture. There is mild hip and knee osteoarthritis. No knee j oint effusion. IMPRESSION: 1. Mild polyarticular osteoarthritis. Reviewed, dictated and finalized at location E. AL WORK CASE MANAGER
[2023-11-23 19:34] VITALS: BP 177/103; PULSE 69; RESP 18; TEMP 36.7; O2SAT 92
[2023-11-23 19:54] VITALS: BP 181/86; PULSE 79; RESP 16; TEMP 36.6; O2SAT 100
--- NOTE | 2023-11-23 20:33 | ED.LOWEXIN ---
HPI - Extremity Injury (Lower) General Chief Complaint: Extremity Injury, Lower Stated Complaint: fall Time Seen by Provider: 11/23/23 20:13 Source: patient and other (presents with friend) Mode of arrival: ambulatory Limitations: no limitations History of Present Illness HPI Narrative: 88 yo presents after falling from a squatted position while pulling on a couch and losing his balance. He landing his left side. Denies hitting his head, no loss of consciousness, on anticoagulation. He has not taken anything for pain. He denies any paresthesias.? He was able to ambulate to cafeteria but difficulty and pain with ambulating back. He states he has no pain at rest, only when he stands/ambulate/applies pressure. Related Data Home Medications Medication Instructions Recorded Confirmed duloxetine 60 mg capsule,delayed 60 mg PO QAM 05/14/20 11/04/22 release amlodipine 2.5 mg tablet 2.5 mg PO HS 11/04/22 11/04/22 bismuth subsalicylate 262 mg 2 tablet PO Q30-60M PRN Abdominal 11/04/22 11/04/22 tablet (Pepto-Bismol) Discomfort chlordiazepoxide-clidinium 5 1 cap PO TID PRN Abdominal 11/04/22 11/04/22 mg-2.5 mg capsule Discomfort donepezil 10 mg tablet 10 mg PO QAM 11/04/22 11/04/22 fludrocortisone 0.1 mg tablet 0.1 mg PO QAM 11/04/22 11/04/22 loperamide 2 mg capsule 2 mg PO QID PRN Diarrhea 11/04/22 11/04/22 mirtazapine 15 mg tablet 15 mg PO HS 11/04/22 11/04/22 potassium chloride 20 mEq 20 meq PO BID 11/04/22 11/04/22 tablet,extended release(part/cryst) Allergies Allergy/AdvReac Type Severity Reaction Status Date / Time celecoxib Allergy Intermediate FACIAL Verified 11/04/22 01:15 RASH/REDNESS budesonide Allergy Unknown CARDIAC Verified 11/04/22 01:15 PROBLEMS iodine Allergy Unknown Unknown Verified 11/04/22 01:15 Contrast Media Allergy Intermediate TACHYCARDIA Uncoded 05/14/20 15:35 [facility] Past Medical History Medical History BPH (benign prostatic hyperplasia) CVA (cerebral vascular accident) Daughter reports MRI demonstrate evidence of old infarcts Dementia Essential hypertension History of anxiety Lymphocytic colitis Orthostatic hypotension Renal cell carcinoma Surgical History Surgical History History of partial nephrectomy Left History of prostatectomy (12/2020) Suprapubic catheter (12/2020) Family History Family History Father Family history of malignant neoplasm Other Family history of cardiovascular disease Social History Social History Social History: The patient lives at [facility] since February 2019. His of 68 years lives in [facility]. The patient's 2 daughters are his and his 's guardian. He is a lifelong nonsmoker. He drinks 2 bottles of beer a week. 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 Code status: Full code Smoking status: Never smoker Second hand tobacco smoke exposure: No Alcohol intake: current Drinks per week: 2 Substance use: never Lack of Transportation: No Lack of Food: Never True Current Housing: I Have Housing Concerned About Future Housing: No Difficulty Paying Gas/Electric Bills: No Difficulty Paying for Meds: No Currently Unemployed: No Education: High School Diploma/GED Difficulty w/ Childcare or Family Care: No Gender identity (if verbalized by the patient): Male Spiritual care concerns: No Exam Narrative: GENERAL: Well-appearing, well-nourished, and in no acute distress. HEAD: Normocephalic, atraumatic. EYES: Non injected, non icteric ENT: Nares clear, no rhinorrhea or epistaxis. NECK: Supple. CHEST: Speaking in complete sentences. No respiratory distress. HEART: Regular rate and rhythm. ABDOMEN: Soft, nondis
[2023-11-23] MEDS: HYDROcodone/acetaminophen (*CRX) 5-325 MG TABLET 1 TAB PO (20:38)
[2023-11-23 21:44] VITALS: BP 186/92; PULSE 80; RESP 16; TEMP 36.7; O2SAT 99
== END 2023-11-23 21:45 ==
PROVIDERS: Emergency Provider Student in an Organized Health Care Education/Training Program
DX: S79.922A Unspecified injury of left thigh, initial encounter (principal); F03.90 Unspecified dementia, unspecified severity, without behavioral disturbance, psychotic disturbance, mood disturbance, and anxiety; I10 Essential (primary) hypertension; N40.0 Benign prostatic hyperplasia without lower urinary tract symptoms; Z85.528 Personal history of other malignant neoplasm of kidney; Z86.73 Personal history of transient ischemic attack (TIA), and cerebral infarction without residual deficits; Z90.5 Acquired absence of kidney; Z90.79 Acquired absence of other genital organ(s); M16.12 Unilateral primary osteoarthritis, left hip; M17.12 Unilateral primary osteoarthritis, left knee; W18.39XA Other fall on same level, initial encounter
CPT/HCPCS: 73552; 99283; A9270

== ENCOUNTER 2024-04-15 16:05 | Inpatient (IN) | payer MEDICARE, SELFPAY ==
--- NOTE | ~2024-04-15 | XR_ITS ---
XR chest 1V Ordering provider: Maximiliano Ceja MD History: 88 years Male with . suspected hip frac . Comparison: November 03, 2022 FINDINGS: MEDIASTINUM: The cardiac silhouette is not enlarged. LUNGS: No effusions or pneumothorax. Prominent markings in the left lower lobe which may indicate bro nchitis. Clinical evaluation advised. OTHER: No free air under the diaphragm. Degenerative changes of the spine. IMPRESSION: Prominent markings in the left lower lobe which may indicate bronchitis. Clinical evaluation advised. Reviewed, dictated and finalized at location A. IMPRESSION: Prominent markings in the left lower lobe which may indicate bronchitis. Clinic al evaluation advised.
--- NOTE | ~2024-04-15 | XR_ITS ---
XR hip RT 2V w AP pelvis Ordering provider: Maximiliano Ceja MD History: . 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 Comparison: None. FINDINGS: BONES: Right intertrochanteric fracture is noted with no significant displacement. HIP JOINT SPACES: Bilateral hip osteoarthritic changes. SACROILIAC JOINT SPACES/LUMBAR SPINE: The sacroiliac joint spaces are normal. Mild degenerative morton es of the visualized lower lumbar spine. PUBIC SYMPHYSIS: Normal. SOFT TISSUES: Normal. IMPRESSION: Right hip intertrochanteric fracture. Reviewed, dictated and finalized at location A.
--- NOTE | ~2024-04-15 | XR_ITS ---
EXAMINATION: XR surgery orthopedic DATE: 04/16/2024 14:47 INDICATION: ORIF right hip fracture TECHNIQUE: 5 fluoroscopic images of the right hip were obtained during procedure performed by Dr. Liz starr. Radiologist was not present for the imaging or procedure. The amount of fluoroscopy time use d during this procedure was 0.7 minutes. COMPARISON: 04/15/2024 FINDINGS: Interval open reduction internal fixation of the previously seen intratrochanteric fracture of the pr oximal right femur. There is been placement of a lateral plate with femoral neck dynamic compression screw and distal interlocking screw fixation. Alignment appears essentially anatomic. No new fracture s identified. Mild right hip osteoarthritis. IMPRESSION: 1. Essentially anatomic alignment post open reduction internal fixation of an intratrochanteric fract ure of the proximal right femur. Reviewed, dictated and finalized at location A. IMPRESSION: 1. Essentially anatomic alignment post open reduction internal fixation of an i ntratrochanteric fracture of the proximal right femur.
[2024-04-15 16:11] VITALS: BP 196/99; PULSE 85; RESP 16; TEMP 36.6; O2SAT 100
--- NOTE | 2024-04-15 16:22 | ECG_ITS ---
Test Date: 2024-04-15 16:57:55 Measurements Intervals [place] Rate: 78 P: 8 SD: 132 QRS: -78 QRSD: 138 T: -17 QT: 421 QTc: 481 Interpretive Statements SINUS RHYTHM RIGHT BUNDLE BRANCH BLOCK [120+ ms QRS DURATION, UPRIGHT V1, 40+ ms S IN I/aVL/V4/V5/V6] LEFT ANTERIOR FASCICULAR BLOCK [QRS AXIS <= -45, QR IN I, RS IN II] POSSIBLE SEPTAL MYOCARDIAL INFARCTION , PROBABLY OLD [30 ms Q WAVE IN V1/V2] No previous ECG available for comparison Electronically Signed On 04-16-2024 11:45:55 CDT by Kay Perez M.D.
--- NOTE | 2024-04-15 16:23 | ED.FALL ---
HPI - Fall General Chief Complaint: Fall Stated Complaint: fall/ rt hip pain History of Present Illness HPI Narrative: 88-year-old male presenting to the emergency department for evaluation after having a mechanical ground level fall. Patient reports he was attempting to grab a handkerchief and had back to the couch and patient reports when he turned around he tripped over his feet and fell to the ground. Patient denies striking head denies any loss of consciousness. Patient did injure his right hip and states when he attempted to stand up he was unable to due to the pain. Patient arrived by EMS. Patient is unable to move his right hip secondary to pain. Patient denies any other pain or injury. Related Data Home Medications Medication Instructions Recorded Confirmed duloxetine 60 mg capsule,delayed 60 mg PO QAM 05/14/20 11/04/22 release amlodipine 2.5 mg tablet 2.5 mg PO HS 11/04/22 11/04/22 bismuth subsalicylate 262 mg 2 tablet PO Q30-60M PRN Abdominal 11/04/22 11/04/22 tablet (Pepto-Bismol) Discomfort chlordiazepoxide-clidinium 5 1 cap PO TID PRN Abdominal 11/04/22 11/04/22 mg-2.5 mg capsule Discomfort donepezil 10 mg tablet 10 mg PO QAM 11/04/22 11/04/22 fludrocortisone 0.1 mg tablet 0.1 mg PO QAM 11/04/22 11/04/22 loperamide 2 mg capsule 2 mg PO QID PRN Diarrhea 11/04/22 11/04/22 mirtazapine 15 mg tablet 15 mg PO HS 11/04/22 11/04/22 potassium chloride 20 mEq 20 meq PO BID 11/04/22 11/04/22 tablet,extended release(part/cryst) Allergies Allergy/AdvReac Type Severity Reaction Status Date / Time celecoxib Allergy Intermediate FACIAL Verified 11/04/22 01:15 RASH/REDNESS budesonide Allergy Unknown CARDIAC Verified 11/04/22 01:15 PROBLEMS iodine Allergy Unknown Unknown Verified 11/04/22 01:15 Contrast Media Allergy Intermediate TACHYCARDIA Uncoded 05/14/20 15:35 Review of Systems Review of Systems: All systems reviewed & are unremarkable except as noted in HPI and below PMFSH Past Medical History Medical History BPH (benign prostatic hyperplasia) CVA (cerebral vascular accident) Daughter reports MRI demonstrate evidence of old infarcts Dementia Essential hypertension History of anxiety Lymphocytic colitis Orthostatic hypotension Renal cell carcinoma Surgical History Surgical History History of partial nephrectomy Left History of prostatectomy (12/2020) Suprapubic catheter (12/2020) Family History Family History Father Family history of malignant neoplasm Other Family history of cardiovascular disease Social History Social History Social History: The patient lives at [facility] since February 2019. His of 68 years lives in [facility]. The patient's 2 daughters are his and his 's guardian. He is a lifelong nonsmoker. He drinks 2 bottles of beer a week. 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 Code status: Full code Smoking status: Never smoker Second hand tobacco smoke exposure: No Alcohol intake: current Drinks per week: 2 Substance use: never Lack of Transportation: No Lack of Food: Never True Current Housing: I Have Housing Concerned About Future Housing: No Difficulty Paying Gas/Electric Bills: No Difficulty Paying for Meds: No Currently Unemployed: No Education: High School Diploma/GED Difficulty w/ Childcare or Family Care: No Gender identity (if verbalized by the patient): Male Spiritual care concerns: No Exam Narrative: APPEARANCE: Uncomfortable appearing HEAD: normocephalic, atraumatic. EYES: PERRLA/EOMI, conjunctivae clear. NOSE: Normal no drainage EARS:TMS clear with good light reflex. THROAT: Pharynx clear, no exudate. NECK: [place]
[2024-04-15 17:13] LABS: Basophils Absolute Auto 0.1 K/mm3 (0.0-0.1); Eosinophils Absolute Auto 0.2 K/mm3 (0-0.3); Eosinophils Percent Auto 2.3 % (0-4.4); Hematocrit 44.1 % (42.0-52.0); Hemoglobin 14.9 g/dL (14.0-18.0); Immature Granulocyte Absolute 0.06 K/mm3 (0.00-0.031); Immature Granulocyte Percent A 0.9 % (0-0.5); Lymphocytes Absolute Auto 1.95 K/mm3 (0.9-3.2); Lymphocytes Percent Auto 28.6 % (18.3-44.2); Mean Corpuscular HGB Conc 33.8 g/dl (32-36); Mean Corpuscular Volume 85.8 fl (80-100); Mean Platelet Volume 9.3 fl (7.4-10.4); Monocytes Absolute Auto 0.4 K/mm3 (0.1-0.6); Monocytes Percent Auto 5.9 % (2.6-8.5); Neutrophils Absolute Auto 4.2 K/mm3 (1.3-6.7); Neutrophils Percent Auto 61.3 % (45.5-73.1); Platelet Count Result 201 k/mm3 (150-375); Red Blood Count 5.14 M/mm3 (4.6-6.20); Red Cell Distribution Width 14.5 % (11.5-14.5); White Blood Count 6.8 K/mm3 (4.5-10.0)
[2024-04-15 17:22] LABS: Alanine Aminotransferase 14 U/L (6-50); Albumin Level 3.9 g/dL (3.5-5.1); Alkaline Phosphatase 227 U/L (38-126); Anion Gap 7 mmol/L (4-12); Aspartate Amino Transferase 21 U/L (17-59); Bilirubin,Total 0.6 mg/dL (0.2-1.3); Blood Urea Nitrogen 20 mg/dL (9-20); Calcium 8.7 mg/dL (8.4-10.2); Carbon Dioxide 20 mmol/L (22-30); Chloride 109 mmol/L (98-107); Estimated Glomerular Filt Rate 38; Glucose 109 mg/dL (65-110); INR 0.9; Potassium 3.8 mmol/L (3.4-5.0); Sodium 136 mmol/L (137-145)
[2024-04-15 17:23] LABS: Partial Thromboplastin Time 40.6 Seconds (22.3-36.8)
[2024-04-15 17:36] VITALS: BP 160/94; PULSE 83; RESP 24; TEMP 36.7; O2SAT 100
[2024-04-15] MEDS: fentaNYL CITRATE INJ (*CRX) 100 MCG/2 ML VIAL 50 MCG IV PUSH (17:59)
--- NOTE | 2024-04-15 18:27 | PC.NURSE ---
Pt daughter Paige ArellanoBrianMurphy phoned update given.
[2024-04-15 19:08] VITALS: BP 190/90; PULSE 79; RESP 20; TEMP 36.8; O2SAT 99
--- NOTE | 2024-04-15 19:19 | PC.NURSE ---
Late entry: Pt arrived with #18 FR castro with 10ml balloon. Castro with blue plug, pt states unplugs to void.
--- NOTE | 2024-04-15 20:08 | ADMGEN ---
This patient, Ravindra Arellano, was admitted to Medical Room 256-. Patient/family oriented to hospital policies and general routines including ID bracelet, bed and alarms, visiting hours, pain management, procedures, bathroom and other care routines, personal items, smoking policy, room service/diet, and visiting hours. Information on how to activate the Rapid Response Team has been discussed. Patient/Family are encouraged to report perceived risks to care and to ask questions if they do not understand what they are told or what they should do.
--- NOTE | 2024-04-15 20:10 | PM.IMHP ---
H&P: HPI History of Present Illness Date/Time: 04/15/24 20:10 Chief Complaint: ground level fall, right hip pain Narrative: 80-year-old male with past medical history dementia, essential hypertension, lymphocytic colitis, coronary artery disease, and chronic for. Check catheter who presented to the ER from [facility] via EMS after ground level fall resulting in right hip pain. The patient reports that his nose has started around CV got up and ambulated to his bedroom without his walker to get a handkerchief. When he was leaving his bedroom he thinks that he got in a hurry and tripped. He tried to take a few rapid steps but was unable to catch himself. He does not think he hit his head and he did not lose consciousness. The patient is alert oriented to place and person. He routinely does not know the month or year. He does have fairly decent recall of the events of brought him to the hospital. He does have a chronic suprapubic catheter that he opens to drain his bladder several times a day. He does not have a chronic [place] bag. He denies any changes in the appearance of his urine. He denies any fevers or chills. He denies chest pain or shortness of breath. He reports that the pain in his right hip is 0/10 as long as he is still. Pain is a 10/10 with any movement. Review of Systems Review of Systems: 12 systems were reviewed with pertinent positives and negatives per HPI. Except as documented in the HPI, all other systems were reviewed and are negative. [facility] Past Medical History Medical History (Updated 04/15/24 @ 20:18 by Kay Deras DO) BPH (benign prostatic hyperplasia) with chronic urinary retention with chronic suprapubic catheter CKD (chronic kidney disease) stage 3, GFR 30-59 ml/min CVA (cerebral vascular accident) Daughter reports MRI demonstrate evidence of old infarcts Dementia Essential hypertension History of anxiety Lymphocytic colitis Orthostatic hypotension Renal cell carcinoma Surgical History Surgical History History of partial nephrectomy Left History of prostatectomy (12/2020) Suprapubic catheter (12/2020) Family History Family History Father Family history of malignant neoplasm Other Family history of cardiovascular disease Social History Social History (Updated 04/16/24 @ 00:40 by Kay Deras DO) Social History: The patient lives at [facility] since February 2019. His of 57 years July 2023. He is a lifelong nonsmoker. He drinks 2 bottles of beer a week. 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 His daughter Paige Morrison ([phone]) and Sunita Arellano ([phone]) are his guardians. Code status: Full code Smoking status: Never smoker Tobacco type: pipe Second hand tobacco smoke exposure: No Alcohol intake: current Drinks per week: 6 Substance use: never Do You Feel Safe in your Home?: Yes Lack of Transportation: No Lack of Food: Never True Current Housing: I Have Housing Concerned About Future Housing: No Difficulty Paying Gas/Electric Bills: No Difficulty Paying for Meds: No Currently Unemployed: No Education: Master's Degree or Higher Difficulty w/ Childcare or Family Care: No Gender identity (if verbalized by the patient): Male Spiritual care concerns: No Meds Home Medications and Allergies Home Medications Medication Instructions Recorded Confirmed Type duloxetine 60 mg capsule,delayed 60 mg PO QAM 05/14/20 04/15/24 History release amlodipine 2.5 mg tablet 2.5 mg PO HS 11/04/22 04/15/24 History bismuth subsalicylate 262 mg 2 tablet PO Q30-60M PRN Abdominal 11/04/22 04/15/24 History tablet (Pepto-Bismol) Discomfort chlordiazepoxide-clidinium 5 1 cap PO TID PRN Abdominal 11/04/22 04/15/24 History mg-2.5 mg caps
[2024-04-15 20:49] VITALS: BMI 22.3
[2024-04-15 22:00] VITALS: BP 170/85; PULSE 89; RESP 18; TEMP 36.8; O2SAT 98
[2024-04-15 23:11] LABS: Appearance Urine Cloudy (Clear); Bacteria Urine 4+ /hpf; Bilirubin Urine Negative (Negative); Blood Urine Negative (Negative); Color Urine Yellow (Yellow); Glucose Urine UA Negative (Negative); Ketones Urine Negative (Negative); Leukocyte Esterase Ur 2+ LEU/UL (Negative); Nitrate Urine Negative (Negative); Non Pathogenic Casts 0-2; Protein Urine Trace mg/dL (Negative); RBC Urine 0-2 /hpf (0-2); Specific Grav Ur 1.015 (1.001-1.035); Squamous Epithelial Cell Urine None Seen /hpf (Few); Urobilinogen Urine 0.2 mg/dL (<2.0); WBC Urine 51-100 /hpf (0-3); pH Urine 5.5 (5.0-9.0)
[2024-04-15 23:16] LABS: Add Urine Microscopic? YES
[2024-04-15] MEDS: SODIUM CHLORIDE 0.9% IV 1,000 ML 75 ML IV CONT (23:28)
[2024-04-16] VITALS (17 sets, daily range): BP systolic 147–209; BP diastolic 80–99; PULSE 64–84; RESP 12–22; TEMP 36.3–36.9; O2SAT 94–100
[2024-04-16] MEDS: MORPHINE SULFATE (*CRX) 2 MG/ML INJ IV PUSH (00:01)
[2024-04-16] MEDS: ALPRAZolam (*CRX) 0.25 MG TABLET PO ×2 (01:52→21:09)
[2024-04-16 06:22] LABS: Anion Gap 8 mmol/L (4-12); Blood Urea Nitrogen 16 mg/dL (9-20); Calcium 8.1 mg/dL (8.4-10.2); Carbon Dioxide 20 mmol/L (22-30); Chloride 107 mmol/L (98-107); Estimated CRCL calculation 30 ml/min; Estimated Glomerular Filt Rate 41; Glucose 112 mg/dL (65-110); Potassium 3.6 mmol/L (3.4-5.0); Sodium 135 mmol/L (137-145)
--- NOTE | 2024-04-16 09:00 | PM.CNOR ---
Assessment and Plan Assessment and plan (1) Intertrochanteric fracture of right hip: Code(s): S72.141A - Displaced intertrochanteric fracture of right femur, initial encounter for closed fracture Status: Acute Plan Pleasant elderly demented gentleman lives in assisted living. Suffered an acute minimally displaced intertrochanteric hip fracture. The fracture will benefit from ORIF. Will plan on a side plate with DHS system to allow for anatomic reduction. He will be able to weight bear as tolerated. Anticipate 3-4 weeks of acute rehab and then return to the assisted living. His daughter is here as power of forest ecology professor. We discussed the risks, benefits, and alternatives to surgery. Proceed with ORIF right hip intertrochanteric fracture. History of Present Illness HPI Consult date: 04/16/24 Chief complaint: Hip FX Narrative: Patient complains of acute hip pain. Fell from standing height. No previous hip pain. Comfortable at rest. No numbness, tingling, or other associated symptoms. Review of Systems Review of Systems: History of dementia. Oriented to person and place. Denies loss of consciousness. All systems reviewed & are unremarkable except as noted in HPI and below PMFSH Past Medical History Medical History (Updated 04/16/24 @ 09:03 by Mayo Veliz MD) BPH (benign prostatic hyperplasia) with chronic urinary retention with chronic suprapubic catheter CKD (chronic kidney disease) stage 3, GFR 30-59 ml/min CVA (cerebral vascular accident) Daughter reports MRI demonstrate evidence of old infarcts Dementia Essential hypertension History of anxiety Lymphocytic colitis Orthostatic hypotension Renal cell carcinoma Surgical History Surgical History History of partial nephrectomy Left History of prostatectomy (12/2020) Suprapubic catheter (12/2020) Family History Family History Father Family history of malignant neoplasm Other Family history of cardiovascular disease Social History Social History (Updated 04/16/24 @ 00:40 by Kay Deras DO) Social History: The patient lives at [facility] since February 2019. His of 57 years July 2023. He is a lifelong nonsmoker. He drinks 2 bottles of beer a week. 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 His daughter Paige Arellano-Georgiana ([phone]) and Sunita Arellano ([phone]) are his guardians. Code status: Full code Smoking status: Never smoker Tobacco type: pipe Second hand tobacco smoke exposure: No Alcohol intake: current Drinks per week: 6 Substance use: never Do You Feel Safe in your Home?: Yes Lack of Transportation: No Lack of Food: Never True Current Housing: I Have Housing Concerned About Future Housing: No Difficulty Paying Gas/Electric Bills: No Difficulty Paying for Meds: No Currently Unemployed: No Education: Master's Degree or Higher Difficulty w/ Childcare or Family Care: No Gender identity (if verbalized by the patient): Male Spiritual care concerns: No Meds Home Medications and Allergies Home Medications Medication Instructions Recorded Confirmed Type duloxetine 60 mg capsule,delayed 60 mg PO COUNT INCLUDES THE [facility] 05/14/20 04/15/24 History release amlodipine 2.5 mg tablet 2.5 mg PO 11/04/22 04/15/24 History bismuth subsalicylate 262 mg 2 tablet PO Q30-60M PRN Abdominal 11/04/22 04/15/24 History tablet (Pepto-Bismol) Discomfort chlordiazepoxide-clidinium 5 1 cap PO TID PRN Abdominal 11/04/22 04/15/24 History mg-2.5 mg capsule Discomfort donepezil 10 mg tablet 10 mg PO COUNT INCLUDES THE [facility] 11/04/22 04/15/24 History fludrocortisone 0.1 mg tablet 0.1 mg PO COUNT INCLUDES THE [facility] 11/04/22 04/15/24 History loperamide 2 mg capsule 2 mg PO BID PRN Diarrhea 11/04/22 04/15/24 History mirtazapine 15 mg tablet 30 mg PO 11/04/22 04/15/24 History po
[2024-04-16] MEDS: buPROPion HCL XL (24 HR) 150 MG TABCR PO (09:26)
[2024-04-16] MEDS: DONEPEZIL HCL 10 MG TABLET PO (09:26)
[2024-04-16] MEDS: DULoxetine HCL 60 MG CAPSULE.DR PO (09:26)
[2024-04-16] MEDS: busPIRone HCL 5 MG TABLET PO ×2 (09:26→16:42)
--- NOTE | 2024-04-16 10:17 | PM.IMPN ---
Progress Note: A&P Assessment and Plan (1) Closed hip fracture: Qualifiers: Encounter type: initial encounter Laterality: right Qualified Code(s): S72.001A - Fracture of unspecified part of neck of right femur, initial encounter for closed fracture Code(s): S72.009A - Fracture of unspecified part of neck of unspecified femur, initial encounter for closed fracture Status: Acute Assessment and Plan: hip and pelvis x-ray showing right hip intratrochanteric fracture orthopedic surgery consulted and will take patient to the OR today continue pain control PT and OT needs to be ordered for tomorrow care coordination following for rehab needs (2) Acute UTI: Code(s): N39.0 - Urinary tract infection, site not specified Status: Acute Assessment and Plan: UA showing 2+ leukocytes, 51-100 urine wbc's, 4+ urine bacteria urine culture pending continue Rocephin (3) Acute kidney injury superimposed on CKD: Code(s): N17.9 - Acute kidney failure, unspecified; N18.9 - Chronic kidney disease, unspecified Status: Acute Assessment and Plan: initial creatinine 1.7, down to 1.6 today patient baseline 1.2-1.3 continue to trend (4) CKD (chronic kidney disease) stage 3, GFR 30-59 ml/min: Code(s): N18.30 - Chronic kidney disease, stage 3 unspecified Status: Acute Assessment and Plan: EGFR currently 38-41 (5) BPH (benign prostatic hyperplasia): Qualifiers: Lower urinary tract symptom detail: urinary retention Lower urinary tract symptom presence: symptoms present Qualified Code(s): N40.1 - Benign prostatic hyperplasia with lower urinary tract symptoms; R33.8 - Other retention of urine Code(s): N40.0 - Benign prostatic hyperplasia without lower urinary tract symptoms Status: Chronic Assessment and Plan: of note patient not on any home medication (6) Dementia: Code(s): F03.90 - Unspecified dementia, unspecified severity, without behavioral disturbance, psychotic disturbance, mood disturbance, and anxiety Status: Chronic Assessment and Plan: continue Aricept Time Spent With Patient Time with patient: Greater than 35 minutes Subjective Date/time seen: 04/16/24 10:17 Interval history: this is an 80 old male who presented to the hospital on 04/15/2024 after sustaining a ground level fall and complaining of right hip pain. Patient states that he tripped over feet when getting up to get a tissue and fell on right side. He states that he normally walks with a cane/walker when out of his room but admits that he does not use his cane/walker when he is in his room and that is when he fell. Workup in the hospital included a chest x-ray which shown prominent markings in the left lower lobe which indicate bronchitis. He had a hip and pelvis x-ray which showed a right hip intratrochanteric fracture. Initial labs showed a sodium level of 136, bicarb 20, creatinine 1.7, EGFR 38, alk-phos 227. UA was obtained which showed 2+ leukocyte, 51-100 urine wbc's, 4+ bacteria. Urine culture was obtained and is pending. Patient was given pain medication and cefazolin while in the ED. ortho was consulted and plans to take patient to surgery today at 1:30 a.m. for repair of his right hip fracture. On examination today patient is alert and oriented x3, lying in the bed. patient denies any Fever, chills, nausea, vomiting, diarrhea, abdominal pain, chest pain, shortness of breath. but he denies any pain at rest. He States that increases when he is moving around. I will start Rocephin today For UTI coverage. Patient will need PT and OT postsurgical and will likely need rehab today. Care coordination was consulted for this. Review of Systems Review of Systems: All systems reviewed & are unremarkable except as noted in HPI and below Constitutional: Constitutional: Reports as per HPI and Reports no additional
--- NOTE | 2024-04-16 12:35 | PC.NURSE ---
To OR via bed. Report given to Priscilla FINE.
--- NOTE | 2024-04-16 13:27 | WPDANESEPPF ---
Anes - Initial Pre Proc Eval Procedure: Operation Date: 04/16/24 13:30 Proposed Procedures p Open Reduction Internal Right Hip - Mayo Veliz MD Date/Time: 04/16/24 13:27 Surgeon: Maryjane Goncalves APRN Pre Op Diagnosis: Hip FX Patient Data Age: 88 Gender: M Height: 1.8 m Weight: 72.5 kg Last Vital Signs Temp 36.9 C 04/16/24 06:00 Pulse 79 04/16/24 06:00 Resp 18 04/16/24 06:00 BP 167/83 H 04/16/24 06:00 Pulse Ox 98 04/16/24 08:43 O2 Del Method Room Air 04/16/24 09:20 Allergies Allergy/AdvReac Type Severity Reaction Status Date / Time celecoxib Allergy Intermediate FACIAL Verified 11/04/22 01:15 RASH/REDNESS budesonide Allergy Unknown CARDIAC Verified 11/04/22 01:15 PROBLEMS iodine Allergy Unknown Unknown Verified 11/04/22 01:15 Contrast Media Allergy Intermediate TACHYCARDIA Uncoded 05/14/20 15:35 Home Medications Medication Instructions Recorded Confirmed Type duloxetine 60 mg capsule,delayed 60 mg PO QAM 05/14/20 04/15/24 History release amlodipine 2.5 mg tablet 2.5 mg PO HS 11/04/22 04/15/24 History bismuth subsalicylate 262 mg 2 tablet PO Q30-60M PRN Abdominal 11/04/22 04/15/24 History tablet (Pepto-Bismol) Discomfort chlordiazepoxide-clidinium 5 1 cap PO TID PRN Abdominal 11/04/22 04/15/24 History mg-2.5 mg capsule Discomfort donepezil 10 mg tablet 10 mg PO QAM 11/04/22 04/15/24 History fludrocortisone 0.1 mg tablet 0.1 mg PO QAM 11/04/22 04/15/24 History loperamide 2 mg capsule 2 mg PO BID PRN Diarrhea 11/04/22 04/15/24 History mirtazapine 15 mg tablet 30 mg PO HS 11/04/22 04/15/24 History potassium chloride 20 mEq 20 meq PO BID 11/04/22 04/15/24 History tablet,extended release(part/cryst) acetaminophen 650 mg 650 mg PO Q8H PRN Pain (Scale 04/15/24 04/15/24 History tablet,extended release Score 1-3) alprazolam 0.25 mg tablet 0.25 mg PO BID PRN Anxiety 04/15/24 04/15/24 History bupropion HCl 150 mg 24 hr tablet, 150 mg PO QAM 04/15/24 04/15/24 History extended release buspirone 5 mg tablet 5 mg PO TID 04/15/24 04/15/24 History ondansetron HCl 4 mg tablet 4 mg PO Q8H PRN Nausea And Vomiting 04/15/24 04/15/24 History polyethylene glycol 1 ea miscellaneous DAILY 04/15/24 04/15/24 History Laboratory Tests 04/15/24 04/15/24 04/16/24 17:05 22:57 05:19 WBC 6.8 K/mm3 (4.5-10.0) RBC 5.14 M/mm3 (4.6-6.20) Hgb 14.9 g/dL (14.0-18.0) Hct 44.1 % (42.0-52.0) MCV 85.8 fl (80-100) MCH 29.0 pg (26-34) MCHC 33.8 g/dl (32-36) RDW 14.5 % (11.5-14.5) Plt Count 201 k/mm3 (150-375) MPV 9.3 fl (7.4-10.4) Immature Gran % (Auto) 0.9 H % (0-0.5) Neut % (Auto) 61.3 % (45.5-73.1) Lymph % (Auto) 28.6 % (18.3-44.2) Petroleum % (Auto) 5.9 % (2.6-8.5) Eos % (Auto) 2.3 % (0-4.4) Baso % (Auto) 1.0 % (0.2-1.2) Lymph # (Auto) 1.95 K/mm3 (0.9-3.2) Petroleum # (Auto) 0.4 K/mm3 (0.1-0.6) Eos # (Auto) 0.2 K/mm3 (0-0.3) Baso # (Auto) 0.1 K/mm3 (0.0-0.1) Abs Immat Gran (auto) 0.06 H K/mm3 (0.00-0.031) Absolute Neuts (auto) 4.2 K/mm3 (1.3-6.7) Absolute Nucleated RBC 0.000 K/mm3 (0.0-0.012) Nucleated RBC % 0.0 % (0.0-0.2) PT 13.0 Seconds (11.1-14.7) INR 0.9 APTT 40.6 H Seconds (22.3-36.8) Sodium 136 L mmol/L 135 L mmol/L (137-145) (137-145) Potassium 3.8 mmol/L 3.6 mmol/L (3.4-5.0) (3.4-5.0) Chloride 109 H mmol/L 107 mmol/L (98-107) (98-107) Carbon Dioxide 20 L mmol/L 20 L mmol/L (22-30) (22-30) Anion Gap 7 mmol/L 8 mmol/L (4-12) (4-12) BUN 20 mg/dL 16 mg/dL (9-20) (9-20) Creatinine 1.70 H mg/dL 1.60 H mg/dL (0.7-1.3) (0.7-1.3) Estim Creat Clear Calc Not Reportable 30 ml/min E
--- NOTE | 2024-04-16 13:29 | WPDHPUPDATE1 ---
History and Physical Update Update Date/Time: 04/16/24 13:29 History and Physical has been reviewed, including an updated exam of the patient. There are NO changes in the patient's condition. Risks, benefits, and alternatives have been discussed and questions answered. Patient agrees to proceed with procedure.
[2024-04-16] MEDS: LACTATED RINGERS 1,000 ML 30 ML IV CONT (13:30)
[2024-04-16] MEDS: TRANEXAMIC ACID 1,000MG/ISO100 1,000 MG/100 ML BAG 200 MG IVPB (13:35)
[2024-04-16] MEDS: ceFAZolin 2 GM/D5W 50 ML 2 GM/50 ML BAG IVPB ×2 (13:35→20:58)
[2024-04-16] MEDS: LABETALOL HCL INJ 100 MG/20 ML VIAL IV PUSH (15:24)
--- NOTE | 2024-04-16 16:26 | PC.NURSE ---
Returned from OR via bed. Report received from Fatuma FINE.
[2024-04-16] MEDS: POTASSIUM CHLORIDE 20 MEQ ER TABLET PO (16:42)
[2024-04-16] MEDS: SENNA/DOCUSATE SODIUM TABLET 2 TAB PO (16:43)
[2024-04-16] MEDS: SODIUM CHLORIDE 0.9% IV 1,000 ML 125 ML IV CONT (16:43)
[2024-04-16] MEDS: ONDANSETRON INJ 4 MG/2 ML VIAL IV PUSH (17:07)
[2024-04-16] MEDS: amLODIPine BESYLATE 2.5 MG TABLET PO (20:32)
[2024-04-16] MEDS: MIRTAZAPINE 15 MG TABLET 30 MG PO (20:32)
[2024-04-16] MEDS: HYDROcodone/acetaminophen (*CRX) 5-325 MG TABLET 1 TAB PO (21:09)
[2024-04-17] VITALS (8 sets, daily range): BP systolic 111–183; BP diastolic 62–91; PULSE 70–83; RESP 16–18; TEMP 36.2–36.8; O2SAT 97–100
[2024-04-17] MEDS: ceFAZolin 2 GM/D5W 50 ML 2 GM/50 ML BAG IVPB ×2 (04:30→12:42)
[2024-04-17 05:41] LABS: Basophils Percent Auto 0.4 % (0.2-1.2); Hematocrit 45.3 % (42.0-52.0); Hemoglobin 14.7 g/dL (14.0-18.0); Immature Granulocyte Absolute 0.04 K/mm3 (0.00-0.031); Immature Granulocyte Percent A 0.5 % (0-0.5); Lymphocytes Absolute Auto 1.03 K/mm3 (0.9-3.2); Lymphocytes Percent Auto 12.3 % (18.3-44.2); Mean Corpuscular HGB Conc 32.5 g/dl (32-36); Mean Corpuscular Hemoglobin 28.4 pg (26-34); Mean Corpuscular Volume 87.5 fl (80-100); Mean Platelet Volume 9.2 fl (7.4-10.4); Monocytes Absolute Auto 0.5 K/mm3 (0.1-0.6); Monocytes Percent Auto 5.4 % (2.6-8.5); Neutrophils Absolute Auto 6.9 K/mm3 (1.3-6.7); Neutrophils Percent Auto 81.4 % (45.5-73.1); Platelet Count Result 167 k/mm3 (150-375); Red Blood Count 5.18 M/mm3 (4.6-6.20); Red Cell Distribution Width 14.4 % (11.5-14.5); White Blood Count 8.4 K/mm3 (4.5-10.0)
[2024-04-17 05:46] LABS: Anion Gap 8 mmol/L (4-12); Blood Urea Nitrogen 18 mg/dL (9-20); Calcium 8.3 mg/dL (8.4-10.2); Carbon Dioxide 22 mmol/L (22-30); Chloride 106 mmol/L (98-107); Estimated CRCL calculation 31 ml/min; Estimated Glomerular Filt Rate 44; Glucose 142 mg/dL (65-110); Potassium 4.7 mmol/L (3.4-5.0); Sodium 136 mmol/L (137-145)
--- NOTE | 2024-04-17 08:07 | PM.PNORT ---
Progress Note: A&P Assessment and Plan (1) Intertrochanteric fracture of right hip: Code(s): S72.141A - Displaced intertrochanteric fracture of right femur, initial encounter for closed fracture Status: Acute Assessment and Plan: POD #1: ORIF right hip intertrochanteric fracture with DHS plate. Patient resting comfortably. No pain at rest. No numbness or tingling. Tolerated procedure well. Daughter at bedside. Plan for him to go to an acute rehab facility. Daughter is hoping for a location in [facility] to be closer to her. Plan to eventually return to assisted living in [place]. Weight bearing as tolerated with a walker. Will get up with therapy today. Ortho instructions: Surgery 04/16/24. D/C to SNF/rehab Xray in 2 weeks. f/u in office in 6 weeks. Wound Care: remove deborah at 2 weeks post op. Daily dressing changes until healed. PT: WBAT with a walker. DVT prophylaxis: continue Lovenox for 30 days total Pain medication: Tylenol. Subjective Subjective Date/Time Seen: 04/17/24 08:07 Interval history: Patient pleasantly confused and very hard of hearing. Daughter at bedside. No pain at rest. No numbness or tingling. No other complaints. Review of Systems Review of Systems: All systems reviewed & are unremarkable except as noted in HPI and below Exam Narrative: 88 y/o confused male. Resting comfortably in bed. No acute distress. No erythema or ecchymosis. No rashes or lesions noted. Warm, normal appearing skin. Tenderness at right hip. Dressing dry and intact without drainage. Calf nontender. Thigh non-tender. Distal pulses palpable. Normal capillary refill. Patient able to move and wiggle toes. Light touch sensation intact. Suprapubic catheter in place. Objective Data Vital Signs Vital Signs: Vital Signs - 24 hr 04/16/24 08:43 04/16/24 09:20 04/16/24 13:38 Temperature 98.5 F Pulse Rate 79 Respiratory Rate 16 Blood Pressure 163/82 H Pulse Oximetry 98 100 Oxygen Delivery Room Air Room Air Room Air Oxygen Flow Rate 04/16/24 15:24 04/16/24 15:09 04/16/24 15:15 Temperature 97.4 F L Pulse Rate 78 84 78 Respiratory Rate 22 H 16 Blood Pressure 200/99 H 191/94 H Pulse Oximetry 99 98 Oxygen Delivery Simple Face Mask Simple Face Mask Oxygen Flow Rate 8 8 04/16/24 15:30 04/16/24 15:21 04/16/24 15:45 Temperature Pulse Rate 72 71 Respiratory Rate 12 12 Blood Pressure 168/83 H 166/90 H Pulse Oximetry 96 98 96 Oxygen Delivery Room Air Room Air Room Air Oxygen Flow Rate 04/16/24 16:00 04/16/24 16:15 04/16/24 16:40 Temperature 97.5 F L Pulse Rate 69 70 64 Respiratory Rate 12 13 14 Blood Pressure 170/88 H 170/80 H 187/82 H Pulse Oximetry 97 97 97 Oxygen Delivery Room Air Room Air Oxygen Flow Rate 04/16/24 16:55 04/16/24 17:15 04/16/24 18:15 Temperature 97.8 F 97.6 F 97.5 F L Pulse Rate 78 71 80 Respiratory Rate 20 21 H 22 H Blood Pressure 209/97 H 178/84 H 147/81 H Pulse Oximetry 95 97 96 Oxygen Delivery Oxygen Flow Rate 04/16/24 16:30 04/16/24 21:17 04/16/24 20:00 Temperature 97.8 F Pulse Rate 82 Respiratory Rate 16 Blood Pressure 168/89 H Pulse Oximetry 96 94 Oxygen Delivery Room Air Room Air Oxygen Flow Rate 04/17/24 02:05 04/17/24 05:32 Temperature 97.4 F L 98.3 F Pulse Rate 80 70 Respiratory Rate 16 18 Blood Pressure 156/80 H 111/62 Pulse Oximetry 97 99 Oxygen Delivery Oxygen Flow Rate Intake/Output Intake/Output: Intake & Output 04/14/24 04/15/24 04/16/24 04/17/24 23:59 23:59 23:59 23:59 Intake Total 920.0 280 Output Total 930 650 Balance -10.0 -370 Meds/Results Medications: Active Medications Generic Name Dose Route Start Last Admin Trade Name Freq PRN Reason Stop Dose Admin Acetaminophen 500 mg 04/15/24 19:42 Acetaminophen 500 Mg Tablet PO Q4H PRN Mild Pain (1-3) or Fever Hydrocodone Bitart/Acetaminophen 1 tab 04/15/24
[2024-04-17] MEDS: DULoxetine HCL 60 MG CAPSULE.DR PO (09:06)
[2024-04-17] MEDS: DONEPEZIL HCL 10 MG TABLET PO (09:07)
[2024-04-17] MEDS: FLUDROCORTISONE ACETATE 0.1 MG TABLET PO (09:07)
[2024-04-17] MEDS: ENOXAPARIN 40 MG/0.4 ML SYRINGE SUB-Q (09:07)
[2024-04-17] MEDS: buPROPion HCL XL (24 HR) 150 MG TABCR PO (09:07)
[2024-04-17] MEDS: POTASSIUM CHLORIDE 20 MEQ ER TABLET PO ×2 (09:07→16:51)
[2024-04-17] MEDS: busPIRone HCL 5 MG TABLET PO ×3 (09:07→16:51)
--- NOTE | 2024-04-17 10:43 | WPDANESPN ---
Anes - Prog Note Post-Op Date/Time: 04/17/24 10:43 Cardiovascular status: normal Respiratory status: normal Airway patency: baseline Mental status: baseline Post-Op hydration status: normal Vital Signs: Last Vital Signs Temp 36.7 C 04/17/24 08:10 Pulse 74 04/17/24 08:10 Resp 16 04/17/24 08:10 BP 183/91 H 04/17/24 08:10 Pulse Ox 99 04/17/24 08:54 O2 Del Method Room Air 04/17/24 08:54 O2 Flow Rate 8 04/16/24 15:15 FiO2 21 04/17/24 08:54 Pain Score (VAS): 10 I/O: Intake & Output 04/16/24 04/17/24 04/17/24 23:59 07:59 15:59 Intake Total 630.5 280 240 Output Total 650 Balance 630.5 -370 240 Laboratory Tests 04/17/24 05:12 04/17/24 05:12 04/17/24 05:12 WBC 8.4 RBC 5.18 Hgb 14.7 Hct 45.3 MCV 87.5 MCH 28.4 MCHC 32.5 RDW 14.4 Plt Count 167 MPV 9.2 Immature Gran % (Auto) 0.5 Neut % (Auto) 81.4 H Lymph % (Auto) 12.3 L [place] % (Auto) 5.4 Eos % (Auto) 0.0 Baso % (Auto) 0.4 Lymph # (Auto) 1.03 [place] # (Auto) 0.5 Eos # (Auto) 0.0 Baso # (Auto) 0.0 Abs Immat Gran (auto) 0.04 H Absolute Neuts (auto) 6.9 H Absolute Nucleated RBC 0.000 Nucleated RBC % 0.0 Sodium 136 L Potassium 4.7 Chloride 106 Carbon Dioxide 22 Anion Gap 8 BUN 18 Creatinine 1.50 H Estim Creat Clear Calc 31 Estimated GFR 44 L Glucose 142 H Calcium 8.3 L Microbiology 04/15/24 22:57 Urine Catheterized Urine Culture - Preliminary Gram negative bacilli isolated Post-procedural complaints: none Patient Feedback: Patient satisfied with anesthetic care.
[2024-04-17] MEDS: HYDROcodone/acetaminophen (*CRX) 5-325 MG TABLET 1 TAB PO (10:54)
--- NOTE | 2024-04-17 13:47 | P.OP_ITS ---
Procedure Note - Detailed Date of Procedure 04/16/24 Pre-op Diagnosis Minimally displaced intertrochanteric hip fracture, right. Post-op Diagnosis Same Procedure Performed ORIF right hip intertrochanteric fracture. Surgeon Mayo Veliz MD Anesthesia General Findings Excellent bone quality. Two hole Synthes DHS plate used. Description of Procedure General anesthetic was administered. The patient was carefully placed on the fracture table. Gentle closed reduction was performed. Biplanar fluoroscopy was used throughout the procedure. The hip was sterilely prepped and draped. A protective barrier was placed before the Ioban due to the iodine allergy. A longitudinal incision was created at the proximal lateral femur. The vastus lateralis was split in line with its fibers. The 135 drill guide was placed and the guide pin was placed in the center of the femoral head. Screw length was measured and the triple Reamer was utilized. The 2-0 plate was inserted. Two cortical screws were placed in the plate with excellent fixation. The compressi on screw was placed and then removed. Vastus lateralis and fascia were closed with 1. Vicryl suture running. The subcutaneous tissues were closed with 2-0 Vicryl followed by deborah. Sterile dressing was applied. The patient was extubated and brought to the recovery room in stable condition. There were no complications. Implants Synthes 2 hole DHS hip plate. Estimated Blood Loss 150 Complications No immediate complications Condition Stable Disposition PACU [facility] Billing Surgery - Charge Forward: Surgery Billing
--- NOTE | 2024-04-17 14:08 | PM.IMPN ---
Progress Note: A&P Assessment and Plan (1) Closed hip fracture: Qualifiers: Encounter type: initial encounter Laterality: right Qualified Code(s): S72.001A - Fracture of unspecified part of neck of right femur, initial encounter for closed fracture Code(s): S72.009A - Fracture of unspecified part of neck of unspecified femur, initial encounter for closed fracture Status: Acute Assessment and Plan: hip and pelvis x-ray showing right hip intratrochanteric fracture orthopedic surgery consulted and will take patient to the OR today continue pain control PT and OT needs to be ordered for tomorrow care coordination following for rehab needs 04/17: Patient doing well, pain when starting to stand that is relieved once he is upright and pain when starting to sit that is relieved once seated. (2) Acute UTI: Code(s): N39.0 - Urinary tract infection, site not specified Status: Acute Assessment and Plan: UA showing 2+ leukocytes, 51-100 urine wbc's, 4+ urine bacteria urine culture pending continue Rocephin 04/17: Suspect colonization, no symptoms of UTI. Stop Rocephin (3) Acute kidney injury superimposed on CKD: Code(s): N17.9 - Acute kidney failure, unspecified; N18.9 - Chronic kidney disease, unspecified Status: Acute Assessment and Plan: initial creatinine 1.7, down to 1.6 today patient baseline 1.2-1.3 continue to trend 04/17: Cr 1.5, GFR 44 (4) CKD (chronic kidney disease) stage 3, GFR 30-59 ml/min: Code(s): N18.30 - Chronic kidney disease, stage 3 unspecified Status: Acute Assessment and Plan: EGFR currently 38-41 04/17: Cr 1.5, GFR 44 (5) BPH (benign prostatic hyperplasia): Qualifiers: Lower urinary tract symptom presence: symptoms present Lower urinary tract symptom detail: urinary retention Qualified Code(s): N40.1 - Benign prostatic hyperplasia with lower urinary tract symptoms; R33.8 - Other retention of urine Code(s): N40.0 - Benign prostatic hyperplasia without lower urinary tract symptoms Status: Chronic Assessment and Plan: of note patient not on any home medication 04/17: Suprapubic catheter chronic (6) Dementia: Code(s): F03.90 - Unspecified dementia, unspecified severity, without behavioral disturbance, psychotic disturbance, mood disturbance, and anxiety Status: Chronic Assessment and Plan: continue Aricept Plan Patient doing well, looking for placement/insurance auth for rehab. Time Spent With Patient Time with patient: Greater than 35 minutes Subjective Date/time seen: 04/17/24 14:08 Interval history: Patient pleasantly confused and very hard of hearing. Daughter at bedside. No pain at rest. Only hurts when he starts to stand or starts to sit. No numbness or tingling. No other complaints. Patient has chronic indwelling suprapubic catheter with regular changes at Urology office at [facility]. Review of Systems Review of Systems: All systems reviewed & are unremarkable except as noted in HPI and below Exam Narrative: GENERAL: awake, alert, pleasantly confused, no acute distress HEAD: Normocephalic, atraumatic. ENT:? Mucous membranes moist. CHEST: Clear to auscultation.? No respiratory distress. HEART: Regular rate and rhythm. ? Normal peripheral pulses. ABDOMEN: Soft, nontender, nondistended. Suprapubic catheter in place draining clear urine EXTREMITIES: Normal range of motion. No peripheral edema. SKIN: Warm dry normal color NEURO: Alert and oriented x2 (baseline dementia) Moves all extremities well. PSYCH: Normal mood and affect Objective Data Vital Signs Vital Signs: Vital Signs - 24 hr 04/16/24 15:24 04/16/24 15:09 04/16/24 15:15 Temperature 36.3 C L Pulse Rate 78 84 78 Respiratory Rate 22 H 16 Blood Pressure 200/99 H 191/94 H Pulse Oximetry 99 98 Oxygen Delivery Simple Face Mask Sim
[2024-04-17] MEDS: ACETAMINOPHEN 500 MG TABLET PO (20:27)
[2024-04-17] MEDS: amLODIPine BESYLATE 2.5 MG TABLET PO (20:28)
[2024-04-17] MEDS: MIRTAZAPINE 15 MG TABLET 30 MG PO (20:28)
[2024-04-17] MEDS: BISMUTH SUBSALICYLATE 262 MG CHEWABLE TABLET PO (20:28)
[2024-04-18 04:53] VITALS: BP 177/85; PULSE 77; RESP 16; TEMP 36.6; O2SAT 100
[2024-04-18 06:06] LABS: Basophils Absolute Auto 0.1 K/mm3 (0.0-0.1); Basophils Percent Auto 0.8 % (0.2-1.2); Eosinophils Absolute Auto 0.2 K/mm3 (0-0.3); Eosinophils Percent Auto 2.8 % (0-4.4); Hematocrit 40.9 % (42.0-52.0); Hemoglobin 13.6 g/dL (14.0-18.0); Immature Granulocyte Absolute 0.03 K/mm3 (0.00-0.031); Immature Granulocyte Percent A 0.4 % (0-0.5); Lymphocytes Absolute Auto 1.71 K/mm3 (0.9-3.2); Lymphocytes Percent Auto 24.2 % (18.3-44.2); Mean Corpuscular HGB Conc 33.3 g/dl (32-36); Mean Corpuscular Hemoglobin 28.8 pg (26-34); Mean Corpuscular Volume 86.7 fl (80-100); Mean Platelet Volume 9.3 fl (7.4-10.4); Monocytes Absolute Auto 0.6 K/mm3 (0.1-0.6); Monocytes Percent Auto 9.1 % (2.6-8.5); Neutrophils Absolute Auto 4.4 K/mm3 (1.3-6.7); Neutrophils Percent Auto 62.7 % (45.5-73.1); Platelet Count Result 151 k/mm3 (150-375); Red Blood Count 4.72 M/mm3 (4.6-6.20); Red Cell Distribution Width 14.8 % (11.5-14.5); White Blood Count 7.1 K/mm3 (4.5-10.0)
[2024-04-18 06:30] LABS: Alanine Aminotransferase 11 U/L (6-50); Albumin Level 3.5 g/dL (3.5-5.1); Alkaline Phosphatase 170 U/L (38-126); Anion Gap 7 mmol/L (4-12); Aspartate Amino Transferase 31 U/L (17-59); Bilirubin,Total 0.7 mg/dL (0.2-1.3); Blood Urea Nitrogen 22 mg/dL (9-20); Carbon Dioxide 22 mmol/L (22-30); Chloride 108 mmol/L (98-107); Estimated CRCL calculation 34 ml/min; Estimated Glomerular Filt Rate 48; Glucose 95 mg/dL (65-110); Magnesium 2.2 mg/dL (1.6-2.3); Potassium 3.9 mmol/L (3.4-5.0); Sodium 137 mmol/L (137-145)
[2024-04-18] MEDS: busPIRone HCL 5 MG TABLET PO ×3 (08:42→17:02)
[2024-04-18] MEDS: DONEPEZIL HCL 10 MG TABLET PO (08:42)
[2024-04-18] MEDS: buPROPion HCL XL (24 HR) 150 MG TABCR PO (08:42)
[2024-04-18] MEDS: BISMUTH SUBSALICYLATE 262 MG CHEWABLE TABLET 524 MG PO (08:42)
[2024-04-18] MEDS: FLUDROCORTISONE ACETATE 0.1 MG TABLET PO (08:43)
[2024-04-18] MEDS: DULoxetine HCL 60 MG CAPSULE.DR PO (08:43)
[2024-04-18] MEDS: ENOXAPARIN 40 MG/0.4 ML SYRINGE SUB-Q (08:43)
[2024-04-18] MEDS: POTASSIUM CHLORIDE 20 MEQ ER TABLET PO ×2 (08:43→17:02)
--- NOTE | 2024-04-18 08:43 | PM.IMPN ---
Progress Note: A&P Assessment and Plan (1) Intertrochanteric fracture of right hip: Code(s): S72.141A - Displaced intertrochanteric fracture of right femur, initial encounter for closed fracture Status: Acute Assessment and Plan: POD #2: ORIF right hip intertrochanteric fracture with DHS plate. No changes in care plan. Patient progressing well. Patient resting comfortably. No pain at rest. No numbness or tingling. Tolerated procedure well. Daughter at bedside. Plan for him to go to an acute rehab facility. Daughter is hoping for a location in [facility] to be closer to her. Plan to eventually return to assisted living in [place]. Weight bearing as tolerated with a walker. Ortho instructions: Surgery 04/16/24. D/C to SNF/rehab Xray in 2 weeks. f/u in office in 6 weeks. Wound Care: remove deborah at 2 weeks post op. Daily dressing changes until healed. PT: WBAT with a walker. DVT prophylaxis: continue Lovenox for 30 days total Pain medication: Tylenol. 04/17: Patient doing well, pain when starting to stand that is relieved once he is upright and pain when starting to sit that is relieved once seated. 04/18: unchanged, awaiting facility and insurance authorization for SNF versus acute rehab (2) Acute UTI: Code(s): N39.0 - Urinary tract infection, site not specified Status: Acute Assessment and Plan: UA showing 2+ leukocytes, 51-100 urine wbc's, 4+ urine bacteria urine culture pending continue Rocephin 04/17: Suspect colonization, no symptoms of UTI. Stop Rocephin 04/18: still no signs of urinary discomfort abdominal pain fever or elevated white blood cell count, urine culture growing Klebsiella oxytoca, and no antibiotics at this time as this appears to be colonization from chronic indwelling suprapubic catheter (3) Acute kidney injury superimposed on CKD: Code(s): N17.9 - Acute kidney failure, unspecified; N18.9 - Chronic kidney disease, unspecified Status: Acute Assessment and Plan: initial creatinine 1.7, down to 1.6 today patient baseline 1.2-1.3 continue to trend 04/17: Cr 1.5, GFR 44 04/18: creatinine 1.4 GFR 48 (4) CKD (chronic kidney disease) stage 3, GFR 30-59 ml/min: Code(s): N18.30 - Chronic kidney disease, stage 3 unspecified Status: Acute Assessment and Plan: EGFR currently 38-41 04/17: Cr 1.5, GFR 44 04/18: creatinine 1.4 GFR 48 (5) BPH (benign prostatic hyperplasia): Qualifiers: Lower urinary tract symptom presence: symptoms present Lower urinary tract symptom detail: urinary retention Qualified Code(s): N40.1 - Benign prostatic hyperplasia with lower urinary tract symptoms; R33.8 - Other retention of urine Code(s): N40.0 - Benign prostatic hyperplasia without lower urinary tract symptoms Status: Chronic Assessment and Plan: of note patient not on any home medication 04/17: Suprapubic catheter chronic (6) Dementia: Code(s): F03.90 - Unspecified dementia, unspecified severity, without behavioral disturbance, psychotic disturbance, mood disturbance, and anxiety Status: Chronic Assessment and Plan: continue Aricept Plan Patient doing well, looking for placement/insurance auth for rehab. Time Spent With Patient Time with patient: 25 - 35 minutes Subjective Date/time seen: 04/18/24 08:43 Interval history: Resting comfortably. No pain in the hip at rest. Notes pain with movement. No other complaints. Awaiting rehab/SNF facility acceptance and insurance authorization Review of Systems Review of Systems: All systems reviewed & are unremarkable except as noted in HPI and below Exam Narrative: GENERAL: awake, alert, pleasantly confused, no acute distress HEAD: Normocephalic, atraumatic. ENT:? Mucous membranes moist. CHEST: Clear to auscultation.? No respiratory distress. HEART: Regular rate and rhythm. ? Normal peripheral pulses. ABDOMEN:
[2024-04-18] MEDS: HYDROcodone/acetaminophen (*CRX) 5-325 MG TABLET 1 TAB PO ×2 (08:45→14:49)
--- NOTE | 2024-04-18 10:24 | PM.PNORT ---
Progress Note: A&P Assessment and Plan (1) Intertrochanteric fracture of right hip: Code(s): S72.141A - Displaced intertrochanteric fracture of right femur, initial encounter for closed fracture Status: Acute Assessment and Plan: POD #2: ORIF right hip intertrochanteric fracture with DHS plate. No changes in care plan. Patient progressing well. Patient resting comfortably. No pain at rest. No numbness or tingling. Tolerated procedure well. Daughter at bedside. Plan for him to go to an acute rehab facility. Daughter is hoping for a location in [facility] to be closer to her. Plan to eventually return to assisted living in [place]. Weight bearing as tolerated with a walker. Ortho instructions: Surgery 04/16/24. D/C to SNF/rehab Xray in 2 weeks. f/u in office in 6 weeks. Wound Care: remove deborah at 2 weeks post op. Daily dressing changes until healed. PT: WBAT with a walker. DVT prophylaxis: continue Lovenox for 30 days total Pain medication: Tylenol. Subjective Subjective Date/Time Seen: 04/18/24 10:24 Interval history: Resting comfortably. No pain in the hip at rest. Notes pain with movement. No other complaints. Review of Systems Review of Systems: All systems reviewed & are unremarkable except as noted in HPI and below Exam Narrative: 88 y/o confused male. Resting comfortably in bed. No acute distress. No erythema or ecchymosis. No rashes or lesions noted. Warm, normal appearing skin. Tenderness at right hip. Dressing dry and intact without drainage. Calf nontender. Thigh non-tender. Distal pulses palpable. Normal capillary refill. Patient able to move and wiggle toes. Light touch sensation intact. Suprapubic catheter in place. Objective Data Vital Signs Vital Signs: Vital Signs - 24 hr 04/17/24 12:12 04/17/24 17:28 04/17/24 20:15 Temperature 97.1 F L 98.2 F 98.1 F Pulse Rate 76 83 80 Respiratory Rate 16 16 18 Blood Pressure 163/77 H 173/76 H 169/70 H Pulse Oximetry 100 99 99 Oxygen Delivery 04/17/24 20:00 04/17/24 23:19 04/18/24 04:53 Temperature 97.9 F Pulse Rate 77 Respiratory Rate 16 Blood Pressure 177/85 H Pulse Oximetry 99 100 Oxygen Delivery Room Air Room Air 04/18/24 08:00 Temperature Pulse Rate Respiratory Rate Blood Pressure Pulse Oximetry Oxygen Delivery Room Air Intake/Output Intake/Output: Intake & Output 04/15/24 04/16/24 04/17/24 04/18/24 23:59 23:59 23:59 23:59 Intake Total 920.0 810 480 Output Total 930 1200 300 Balance -10.0 -390 180 Meds/Results Medications: Active Medications Generic Name Dose Route Start Last Admin Trade Name Freq PRN Reason Stop Dose Admin Acetaminophen 500 mg 04/15/24 19:42 04/17/24 20:27 Acetaminophen 500 Mg Tablet PO 500 mg Q4H PRN Administration Mild Pain (1-3) or Fever Hydrocodone Bitart/Acetaminophen 1 tab 04/15/24 19:42 04/18/24 08:45 Hydrocodone/Acetaminophen (*Crx) 5-325 Mg Tablet PO 1 tab Q6H PRN Administration Pain Rated 4-6 Alprazolam 0.25 mg 04/16/24 00:45 04/16/24 21:09 Alprazolam (*Crx) 0.25 Mg Tablet PO 0.25 mg BID PRN Administration Anxiety Amlodipine Besylate 2.5 mg 04/16/24 21:00 04/17/24 20:28 Amlodipine Besylate 2.5 Mg Tablet PO 2.5 mg HS SRAVAN Administration Bismuth Subsalicylate 524 mg 04/17/24 15:40 04/18/24 08:42 Bismuth Subsalicylate 262 Mg Chewable Tablet PO 524 mg QAM SRAVAN Administration Bismuth Subsalicylate 262 mg 04/17/24 21:00 04/17/24 20:28 Bismuth Subsalicylate 262 Mg Chewable Tablet PO 262 mg HS SRAVAN Administration Bupropion HCl 150 mg 04/16/24 09:00 04/18/24 08:42 Bupropion Hcl Xl (24 Hr) 150 Mg Tabcr PO 150 mg QAM SRAVAN Administration Buspirone HCl 5 mg 04/16/24 09:00 04/18/24 08:42 Buspirone Hcl 5 Mg Tablet PO 5 mg TID SRAVAN Administration Donepezil HCl 10 mg 04/16/24 09:04/18/24 08:42 Donepezil Hcl 10 Mg Tablet PO
[2024-04-18 16:51] VITALS: BP 160/78; PULSE 72; RESP 16; TEMP 36.5; O2SAT 100
[2024-04-18 19:15] VITALS: BP 195/83; PULSE 77; RESP 18; TEMP 36.7; O2SAT 100
[2024-04-18] MEDS: BISMUTH SUBSALICYLATE 262 MG CHEWABLE TABLET PO (20:04)
[2024-04-18] MEDS: MIRTAZAPINE 15 MG TABLET 30 MG PO (20:04)
[2024-04-18] MEDS: amLODIPine BESYLATE 2.5 MG TABLET PO (20:04)
[2024-04-19 05:27] LABS: Basophils Absolute Auto 0.1 K/mm3 (0.0-0.1); Eosinophils Absolute Auto 0.2 K/mm3 (0-0.3); Eosinophils Percent Auto 3.1 % (0-4.4); Hematocrit 44.5 % (42.0-52.0); Hemoglobin 14.3 g/dL (14.0-18.0); Immature Granulocyte Absolute 0.04 K/mm3 (0.00-0.031); Immature Granulocyte Percent A 0.7 % (0-0.5); Lymphocytes Absolute Auto 1.65 K/mm3 (0.9-3.2); Lymphocytes Percent Auto 27.3 % (18.3-44.2); Mean Corpuscular HGB Conc 32.1 g/dl (32-36); Mean Corpuscular Hemoglobin 28.4 pg (26-34); Mean Corpuscular Volume 88.3 fl (80-100); Mean Platelet Volume 9.5 fl (7.4-10.4); Monocytes Absolute Auto 0.6 K/mm3 (0.1-0.6); Monocytes Percent Auto 9.4 % (2.6-8.5); Neutrophils Absolute Auto 3.5 K/mm3 (1.3-6.7); Neutrophils Percent Auto 58.5 % (45.5-73.1); Platelet Count Result 180 k/mm3 (150-375); Red Blood Count 5.04 M/mm3 (4.6-6.20); Red Cell Distribution Width 14.7 % (11.5-14.5); White Blood Count 6.1 K/mm3 (4.5-10.0)
[2024-04-19 05:47] LABS: Alanine Aminotransferase 8 U/L (6-50); Albumin Level 3.8 g/dL (3.5-5.1); Alkaline Phosphatase 154 U/L (38-126); Anion Gap 6 mmol/L (4-12); Aspartate Amino Transferase 29 U/L (17-59); Blood Urea Nitrogen 20 mg/dL (9-20); Calcium 8.4 mg/dL (8.4-10.2); Carbon Dioxide 24 mmol/L (22-30); Chloride 104 mmol/L (98-107); Estimated CRCL calculation 34 ml/min; Estimated Glomerular Filt Rate 48; Glucose 103 mg/dL (65-110); Magnesium 2.2 mg/dL (1.6-2.3); Potassium 4.1 mmol/L (3.4-5.0); Sodium 134 mmol/L (137-145)
[2024-04-19 06:18] VITALS: BP 181/82; PULSE 80; RESP 18; TEMP 36.9; O2SAT 96
[2024-04-19] MEDS: HYDROcodone/acetaminophen (*CRX) 5-325 MG TABLET 1 TAB PO ×2 (09:42→18:00)
[2024-04-19] MEDS: DULoxetine HCL 60 MG CAPSULE.DR PO (09:43)
[2024-04-19] MEDS: buPROPion HCL XL (24 HR) 150 MG TABCR PO (09:43)
[2024-04-19] MEDS: BISMUTH SUBSALICYLATE 262 MG CHEWABLE TABLET 524 MG PO (09:44)
[2024-04-19] MEDS: DONEPEZIL HCL 10 MG TABLET PO (09:44)
[2024-04-19] MEDS: FLUDROCORTISONE ACETATE 0.1 MG TABLET PO (09:44)
[2024-04-19] MEDS: POTASSIUM CHLORIDE 20 MEQ ER TABLET PO ×2 (09:44→18:00)
[2024-04-19] MEDS: ENOXAPARIN 40 MG/0.4 ML SYRINGE SUB-Q (09:44)
[2024-04-19] MEDS: busPIRone HCL 5 MG TABLET PO ×3 (09:44→18:00)
--- NOTE | 2024-04-19 09:45 | PM.PNORT ---
Progress Note: A&P Assessment and Plan (1) Intertrochanteric fracture of right hip: Code(s): S72.141A - Displaced intertrochanteric fracture of right femur, initial encounter for closed fracture Status: Acute Assessment and Plan: POD #3: ORIF right hip intertrochanteric fracture with DHS plate. No changes in care plan. Patient progressing well. Patient resting comfortably. No pain at rest. No numbness or tingling. Tolerated procedure well. Male family member at bedside. Plan for him to go to an acute rehab facility. Daughter is hoping for a location in [facility] to be closer to her. Discharge planning in progress. Plan to eventually return to assisted living in [place]. Weight bearing as tolerated with a walker. Okay to discharge from orthopedic standpoint once medically cleared. Ortho instructions: Surgery 04/16/24. D/C to SNF/rehab Xray in 2 weeks. f/u in office in 6 weeks. Wound Care: remove deborah at 2 weeks post op. Daily dressing changes until healed. PT: WBAT with a walker. DVT prophylaxis: continue Lovenox for 30 days total Pain medication: Tylenol. Subjective Subjective Date/Time Seen: 04/19/24 09:45 Interval history: Patient resting comfortably. Very hard of hearing and pleasantly confused. Does not remember that he had a hip fracture. Notes pain when he gets up. Discussed plan. Review of Systems Review of Systems: All systems reviewed & are unremarkable except as noted in HPI and below Exam Narrative: 88 y/o confused male. Resting comfortably in bed. No acute distress. No erythema or ecchymosis. No rashes or lesions noted. Warm, normal appearing skin. Tenderness at right hip. Dressing dry and intact without drainage. Calf nontender. Thigh non-tender. Distal pulses palpable. Normal capillary refill. Patient able to move and wiggle toes. Light touch sensation intact. Suprapubic catheter in place. Objective Data Vital Signs Vital Signs: Vital Signs - 24 hr 04/18/24 16:51 04/18/24 19:15 04/18/24 19:24 Temperature 97.7 F 98.0 F Pulse Rate 72 77 Respiratory Rate 16 18 Blood Pressure 160/78 H 195/83 H Pulse Oximetry 100 100 Oxygen Delivery Room Air 04/19/24 06:18 Temperature 98.4 F Pulse Rate 80 Respiratory Rate 18 Blood Pressure 181/82 H Pulse Oximetry 96 Oxygen Delivery Intake/Output Intake/Output: Intake & Output 04/16/24 04/17/24 04/18/24 04/19/24 23:59 23:59 23:59 23:59 Intake Total 920.0 810 1080 0 Output Total 930 1200 1050 1700 Balance -10.0 -390 30 -1700 Meds/Results Medications: Active Medications Generic Name Dose Route Start Last Admin Trade Name Freq PRN Reason Stop Dose Admin Acetaminophen 500 mg 04/15/24 19:42 04/17/24 20:27 Acetaminophen 500 Mg Tablet PO 500 mg Q4H PRN Administration Mild Pain (1-3) or Fever Hydrocodone Bitart/Acetaminophen 1 tab 04/15/24 19:42 04/18/24 14:49 Hydrocodone/Acetaminophen (*Crx) 5-325 Mg Tablet PO 1 tab Q6H PRN Administration Pain Rated 4-6 Alprazolam 0.25 mg 04/16/24 00:45 04/16/24 21:09 Alprazolam (*Crx) 0.25 Mg Tablet PO 0.25 mg BID PRN Administration Anxiety Amlodipine Besylate 2.5 mg 04/16/24 21:00 04/18/24 20:04 Amlodipine Besylate 2.5 Mg Tablet PO 2.5 mg HS SRAVAN Administration Bismuth Subsalicylate 524 mg 04/17/24 15:40 04/18/24 08:42 Bismuth Subsalicylate 262 Mg Chewable Tablet PO 524 mg QAM SRAVAN Administration Bismuth Subsalicylate 262 mg 04/17/24 21:00 04/18/24 20:04 Bismuth Subsalicylate 262 Mg Chewable Tablet PO 262 mg HS SRAVAN Administration Bupropion HCl 150 mg 04/16/24 09:00 04/18/24 08:42 Bupropion Hcl Xl (24 Hr) 150 Mg Tabcr PO 150 mg QAM SRAVAN Administration Buspirone HCl 5 mg 04/16/24 09:00 04/18/24 17:02 Buspirone Hcl 5 Mg Tablet PO 5 mg TID SRAVAN Administration Donepezil HCl 10 mg 04/16/24 09:00 04/18/24 08:42 Donepezil Hcl 10 Mg Tablet PO 10 mg
--- NOTE | 2024-04-19 11:07 | PM.IMPN ---
Progress Note: A&P Assessment and Plan (1) Intertrochanteric fracture of right hip: Code(s): S72.141A - Displaced intertrochanteric fracture of right femur, initial encounter for closed fracture Status: Acute Assessment and Plan: POD #2: ORIF right hip intertrochanteric fracture with DHS plate. No changes in care plan. Patient progressing well. Patient resting comfortably. No pain at rest. No numbness or tingling. Tolerated procedure well. Daughter at bedside. Plan for him to go to an acute rehab facility. Daughter is hoping for a location in [facility] to be closer to her. Plan to eventually return to assisted living in [place]. Weight bearing as tolerated with a walker. Ortho instructions: Surgery 04/16/24. D/C to SNF/rehab Xray in 2 weeks. f/u in office in 6 weeks. Wound Care: remove deborah at 2 weeks post op. Daily dressing changes until healed. PT: WBAT with a walker. DVT prophylaxis: continue Lovenox for 30 days total Pain medication: Tylenol. 04/17: Patient doing well, pain when starting to stand that is relieved once he is upright and pain when starting to sit that is relieved once seated. 04/18: unchanged, awaiting facility and insurance authorization for SNF versus acute rehab 04/19: excepted by acute rehab in [place], awaiting insurance authorization (2) Acute UTI: Code(s): N39.0 - Urinary tract infection, site not specified Status: Acute Assessment and Plan: UA showing 2+ leukocytes, 51-100 urine wbc's, 4+ urine bacteria urine culture pending continue Rocephin 04/17: Suspect colonization, no symptoms of UTI. Stop Rocephin 04/18: still no signs of urinary discomfort abdominal pain fever or elevated white blood cell count, urine culture growing Klebsiella oxytoca, and no antibiotics at this time as this appears to be colonization from chronic indwelling suprapubic catheter 04/19: 1 episode of nausea vomiting no bladder tenderness normal white blood cell count fever chills. Any further systemic signs I would begin treatment for Klebsiella oxytoca (3) Acute kidney injury superimposed on CKD: Code(s): N17.9 - Acute kidney failure, unspecified; N18.9 - Chronic kidney disease, unspecified Status: Acute Assessment and Plan: initial creatinine 1.7, down to 1.6 today patient baseline 1.2-1.3 continue to trend 04/17: Cr 1.5, GFR 44 04/18: creatinine 1.4 GFR 48 04/19: creatinine 1.4 GFR 48 (4) CKD (chronic kidney disease) stage 3, GFR 30-59 ml/min: Code(s): N18.30 - Chronic kidney disease, stage 3 unspecified Status: Acute Assessment and Plan: EGFR currently 38-41 04/17: Cr 1.5, GFR 44 04/18: creatinine 1.4 GFR 48 04/19: creatinine 1.4 GFR 48 (5) BPH (benign prostatic hyperplasia): Qualifiers: Lower urinary tract symptom presence: symptoms present Lower urinary tract symptom detail: urinary retention Qualified Code(s): N40.1 - Benign prostatic hyperplasia with lower urinary tract symptoms; R33.8 - Other retention of urine Code(s): N40.0 - Benign prostatic hyperplasia without lower urinary tract symptoms Status: Chronic Assessment and Plan: of note patient not on any home medication 04/17: Suprapubic catheter chronic (6) Dementia: Code(s): F03.90 - Unspecified dementia, unspecified severity, without behavioral disturbance, psychotic disturbance, mood disturbance, and anxiety Status: Chronic Assessment and Plan: continue Aricept Time Spent With Patient Time with patient: Greater than 35 minutes Subjective Date/time seen: 04/19/24 11:07 Interval history: Patient had an episode nausea vomiting and anxiety that happened just before lunch time. Prior to this he was feeling well. He states he was just sitting there and at suddenly happened. No abdominal pain/bladder or CVA tenderness. No fever or chills. Patient has been hypertensive most mornings despite taking his a
[2024-04-19] MEDS: ONDANSETRON INJ 4 MG/2 ML VIAL IV PUSH ×2 (12:06→18:49)
[2024-04-19 12:09] VITALS: BP 224/117
[2024-04-19 12:18] VITALS: BP 155/88
[2024-04-19 14:00] VITALS: BP 132/89; PULSE 95; RESP 16; TEMP 36.4; O2SAT 95
[2024-04-19] MEDS: ALPRAZolam (*CRX) 0.25 MG TABLET PO (14:17)
[2024-04-19 18:53] VITALS: TEMP 36.3
[2024-04-19 19:23] VITALS: BP 162/87; PULSE 86; RESP 18; TEMP 36.8; O2SAT 99
[2024-04-19] MEDS: BISMUTH SUBSALICYLATE 262 MG CHEWABLE TABLET PO (20:16)
[2024-04-19] MEDS: amLODIPine BESYLATE 5 MG TABLET PO (20:16)
[2024-04-19] MEDS: MIRTAZAPINE 15 MG TABLET 30 MG PO (20:16)
[2024-04-20 04:38] LABS: Basophils Absolute Auto 0.1 K/mm3 (0.0-0.1); Basophils Percent Auto 0.9 % (0.2-1.2); Eosinophils Absolute Auto 0.2 K/mm3 (0-0.3); Eosinophils Percent Auto 3.3 % (0-4.4); Hematocrit 42.7 % (42.0-52.0); Immature Granulocyte Absolute 0.04 K/mm3 (0.00-0.031); Immature Granulocyte Percent A 0.7 % (0-0.5); Lymphocytes Absolute Auto 1.94 K/mm3 (0.9-3.2); Lymphocytes Percent Auto 35.4 % (18.3-44.2); Mean Corpuscular HGB Conc 32.8 g/dl (32-36); Mean Corpuscular Hemoglobin 28.8 pg (26-34); Mean Corpuscular Volume 87.9 fl (80-100); Mean Platelet Volume 8.9 fl (7.4-10.4); Monocytes Absolute Auto 0.5 K/mm3 (0.1-0.6); Monocytes Percent Auto 9.1 % (2.6-8.5); Neutrophils Absolute Auto 2.8 K/mm3 (1.3-6.7); Neutrophils Percent Auto 50.6 % (45.5-73.1); Platelet Count Result 171 k/mm3 (150-375); Red Blood Count 4.86 M/mm3 (4.6-6.20); Red Cell Distribution Width 14.7 % (11.5-14.5); White Blood Count 5.5 K/mm3 (4.5-10.0)
[2024-04-20 04:50] LABS: Alanine Aminotransferase 10 U/L (6-50); Albumin Level 3.6 g/dL (3.5-5.1); Alkaline Phosphatase 134 U/L (38-126); Anion Gap 7 mmol/L (4-12); Aspartate Amino Transferase 31 U/L (17-59); Bilirubin,Total 0.9 mg/dL (0.2-1.3); Blood Urea Nitrogen 27 mg/dL (9-20); Calcium 8.4 mg/dL (8.4-10.2); Carbon Dioxide 22 mmol/L (22-30); Chloride 108 mmol/L (98-107); Estimated CRCL calculation 31 ml/min; Estimated Glomerular Filt Rate 44; Glucose 96 mg/dL (65-110); Magnesium 2.4 mg/dL (1.6-2.3); Potassium 4.2 mmol/L (3.4-5.0); Sodium 137 mmol/L (137-145)
[2024-04-20 06:00] VITALS: BP 161/78; PULSE 76; RESP 18; TEMP 36.3; O2SAT 97
[2024-04-20] MEDS: BISMUTH SUBSALICYLATE 262 MG CHEWABLE TABLET 524 MG PO (09:04)
[2024-04-20] MEDS: POTASSIUM CHLORIDE 20 MEQ ER TABLET PO ×2 (09:05→17:14)
[2024-04-20] MEDS: busPIRone HCL 5 MG TABLET PO ×3 (09:05→17:14)
[2024-04-20] MEDS: buPROPion HCL XL (24 HR) 150 MG TABCR PO (09:05)
[2024-04-20] MEDS: FLUDROCORTISONE ACETATE 0.1 MG TABLET PO (09:06)
[2024-04-20] MEDS: DONEPEZIL HCL 10 MG TABLET PO (09:06)
[2024-04-20] MEDS: DULoxetine HCL 60 MG CAPSULE.DR PO (09:06)
[2024-04-20] MEDS: ENOXAPARIN 40 MG/0.4 ML SYRINGE SUB-Q (09:07)
--- NOTE | 2024-04-20 10:08 | PM.IMPN ---
Progress Note: A&P Assessment and Plan (1) Intertrochanteric fracture of right hip: Code(s): S72.141A - Displaced intertrochanteric fracture of right femur, initial encounter for closed fracture Status: Acute Assessment and Plan: POD #4: ORIF right hip intertrochanteric fracture with DHS plate. No changes in care plan. Patient progressing well. Patient resting comfortably. No pain at rest. No numbness or tingling. Tolerated procedure well. Daughter at bedside. Plan for him to go to an acute rehab facility. Daughter is hoping for a location in [facility] to be closer to her. Plan to eventually return to assisted living in [place]. Weight bearing as tolerated with a walker. Ortho instructions: Surgery 04/16/24. D/C to SNF/rehab Xray in 2 weeks. f/u in office in 6 weeks. Wound Care: remove deborah at 2 weeks post op. Daily dressing changes until healed. PT: WBAT with a walker. DVT prophylaxis: continue Lovenox for 30 days total Pain medication: Tylenol. 04/17: Patient doing well, pain when starting to stand that is relieved once he is upright and pain when starting to sit that is relieved once seated. 04/18: unchanged, awaiting facility and insurance authorization for SNF versus acute rehab 04/19: accepted by acute rehab in [place], awaiting insurance authorization 04/20: still awaiting insurance auth for acute rehab (2) Acute UTI: Code(s): N39.0 - Urinary tract infection, site not specified Status: Acute Assessment and Plan: UA showing 2+ leukocytes, 51-100 urine wbc's, 4+ urine bacteria urine culture pending continue Rocephin 04/17: Suspect colonization, no symptoms of UTI. Stop Rocephin 04/18: still no signs of urinary discomfort abdominal pain fever or elevated white blood cell count, urine culture growing Klebsiella oxytoca, and no antibiotics at this time as this appears to be colonization from chronic indwelling suprapubic catheter 04/19: 1 episode of nausea vomiting no bladder tenderness normal white blood cell count fever chills. Any further systemic signs I would begin treatment for Klebsiella oxytoca 04/20: 2 episodes vomiting yesterday, still no other signs of UTI and patient feeling much better today. Labs stable. Discussed with family, no antibiotics at this time. (3) Acute kidney injury superimposed on CKD: Code(s): N17.9 - Acute kidney failure, unspecified; N18.9 - Chronic kidney disease, unspecified Status: Acute Assessment and Plan: initial creatinine 1.7, down to 1.6 today patient baseline 1.2-1.3 continue to trend 04/17: Cr 1.5, GFR 44 04/18: creatinine 1.4 GFR 48 04/19: creatinine 1.4 GFR 48 04/20: Cr 1.5, GFR 44 (4) CKD (chronic kidney disease) stage 3, GFR 30-59 ml/min: Code(s): N18.30 - Chronic kidney disease, stage 3 unspecified Status: Acute Assessment and Plan: EGFR currently 38-41 04/17: Cr 1.5, GFR 44 04/18: creatinine 1.4 GFR 48 04/19: creatinine 1.4 GFR 48 04/20: Cr 1.5, GFR 44 (5) BPH (benign prostatic hyperplasia): Qualifiers: Lower urinary tract symptom presence: symptoms present Lower urinary tract symptom detail: urinary retention Qualified Code(s): N40.1 - Benign prostatic hyperplasia with lower urinary tract symptoms; R33.8 - Other retention of urine Code(s): N40.0 - Benign prostatic hyperplasia without lower urinary tract symptoms Status: Chronic Assessment and Plan: of note patient not on any home medication 04/17: Suprapubic catheter chronic (6) Dementia: Code(s): F03.90 - Unspecified dementia, unspecified severity, without behavioral disturbance, psychotic disturbance, mood disturbance, and anxiety Status: Chronic Assessment and Plan: continue Aricept Time Spent With Patient Time with patient: 25 - 35 minutes Subjective Date/time seen: 04/20/24 10:08 Interval history: Patient feeling better today. Yesterday he had 2 separate emes
[2024-04-20 14:00] VITALS: BP 157/72; PULSE 81; RESP 18; TEMP 36.2; O2SAT 100
[2024-04-20 19:59] VITALS: BP 164/80; PULSE 78; RESP 20; TEMP 36.6; O2SAT 100
[2024-04-20] MEDS: BISMUTH SUBSALICYLATE 262 MG CHEWABLE TABLET PO (21:19)
[2024-04-20] MEDS: MIRTAZAPINE 15 MG TABLET 30 MG PO (21:19)
[2024-04-20] MEDS: amLODIPine BESYLATE 5 MG TABLET PO (21:20)
[2024-04-21 04:45] LABS: Basophils Absolute Auto 0.1 K/mm3 (0.0-0.1); Eosinophils Absolute Auto 0.2 K/mm3 (0-0.3); Eosinophils Percent Auto 3.8 % (0-4.4); Hematocrit 40.4 % (42.0-52.0); Hemoglobin 13.5 g/dL (14.0-18.0); Immature Granulocyte Absolute 0.04 K/mm3 (0.00-0.031); Immature Granulocyte Percent A 0.7 % (0-0.5); Lymphocytes Absolute Auto 2.12 K/mm3 (0.9-3.2); Lymphocytes Percent Auto 35.1 % (18.3-44.2); Mean Corpuscular HGB Conc 33.4 g/dl (32-36); Mean Corpuscular Hemoglobin 28.8 pg (26-34); Mean Corpuscular Volume 86.3 fl (80-100); Monocytes Absolute Auto 0.5 K/mm3 (0.1-0.6); Monocytes Percent Auto 8.6 % (2.6-8.5); Neutrophils Absolute Auto 3.1 K/mm3 (1.3-6.7); Neutrophils Percent Auto 50.8 % (45.5-73.1); Platelet Count Result 188 k/mm3 (150-375); Red Blood Count 4.68 M/mm3 (4.6-6.20); Red Cell Distribution Width 14.6 % (11.5-14.5)
[2024-04-21 04:59] LABS: Alanine Aminotransferase 13 U/L (6-50); Albumin Level 3.4 g/dL (3.5-5.1); Alkaline Phosphatase 135 U/L (38-126); Anion Gap 6 mmol/L (4-12); Aspartate Amino Transferase 31 U/L (17-59); Bilirubin,Total 0.7 mg/dL (0.2-1.3); Blood Urea Nitrogen 30 mg/dL (9-20); Calcium 8.4 mg/dL (8.4-10.2); Carbon Dioxide 22 mmol/L (22-30); Chloride 108 mmol/L (98-107); Estimated CRCL calculation 31 ml/min; Estimated Glomerular Filt Rate 44; Glucose 104 mg/dL (65-110); Magnesium 2.3 mg/dL (1.6-2.3); Potassium 4.2 mmol/L (3.4-5.0); Sodium 136 mmol/L (137-145)
[2024-04-21 05:08] VITALS: BP 136/64; PULSE 80; RESP 16; TEMP 37.2; O2SAT 93
[2024-04-21] MEDS: POTASSIUM CHLORIDE 20 MEQ ER TABLET PO ×2 (08:35→16:56)
[2024-04-21] MEDS: FLUDROCORTISONE ACETATE 0.1 MG TABLET PO (08:35)
[2024-04-21] MEDS: busPIRone HCL 5 MG TABLET PO ×3 (08:35→16:56)
[2024-04-21] MEDS: DONEPEZIL HCL 10 MG TABLET PO (08:35)
[2024-04-21] MEDS: buPROPion HCL XL (24 HR) 150 MG TABCR PO (08:35)
[2024-04-21] MEDS: DULoxetine HCL 60 MG CAPSULE.DR PO (08:36)
[2024-04-21] MEDS: ACETAMINOPHEN 500 MG TABLET PO ×2 (08:36→18:44)
[2024-04-21] MEDS: BISMUTH SUBSALICYLATE 262 MG CHEWABLE TABLET 524 MG PO (08:36)
[2024-04-21] MEDS: ENOXAPARIN 40 MG/0.4 ML SYRINGE SUB-Q (08:37)
--- NOTE | 2024-04-21 09:48 | PCOTNOTE ---
Pt was sleeping upon therapist arrival. Pt was awoken with tactile cues and request to see therapy in the afternoon.
--- NOTE | 2024-04-21 13:22 | PM.IMPN ---
Progress Note: A&P Assessment and Plan (1) Intertrochanteric fracture of right hip: Code(s): S72.141A - Displaced intertrochanteric fracture of right femur, initial encounter for closed fracture Status: Acute Assessment and Plan: POD #5: ORIF right hip intertrochanteric fracture with DHS plate. No changes in care plan. Patient progressing well. Patient resting comfortably. No pain at rest. No numbness or tingling. Tolerated procedure well. Daughter at bedside. Plan for him to go to an acute rehab facility. Daughter is hoping for a location in [facility] to be closer to her. Plan to eventually return to assisted living in [place]. Weight bearing as tolerated with a walker. Ortho instructions: Surgery 04/16/24. D/C to SNF/rehab Xray in 2 weeks. f/u in office in 6 weeks. Wound Care: remove deborah at 2 weeks post op. Daily dressing changes until healed. PT: WBAT with a walker. DVT prophylaxis: continue Lovenox for 30 days total Pain medication: Tylenol. 04/17: Patient doing well, pain when starting to stand that is relieved once he is upright and pain when starting to sit that is relieved once seated. 04/18: unchanged, awaiting facility and insurance authorization for SNF versus acute rehab 04/19: accepted by acute rehab in [place], awaiting insurance authorization 04/20: still awaiting insurance auth for acute rehab 04/21: Insurance denied acute rehab, peer to peer to be completed on Monday (tomorrow) by noon (2) Acute UTI: Code(s): N39.0 - Urinary tract infection, site not specified Status: Acute Assessment and Plan: UA showing 2+ leukocytes, 51-100 urine wbc's, 4+ urine bacteria urine culture pending continue Rocephin 04/17: Suspect colonization, no symptoms of UTI. Stop Rocephin 04/18: still no signs of urinary discomfort abdominal pain fever or elevated white blood cell count, urine culture growing Klebsiella oxytoca, and no antibiotics at this time as this appears to be colonization from chronic indwelling suprapubic catheter 04/19: 1 episode of nausea vomiting no bladder tenderness normal white blood cell count fever chills. Any further systemic signs I would begin treatment for Klebsiella oxytoca 04/20: 2 episodes vomiting yesterday, still no other signs of UTI and patient feeling much better today. Labs stable. Discussed with family, no antibiotics at this time. 04/21: Mild level of consciousness changes yesterday evening and today, patient wanting to sleep all the time. Discussed with family and we will treat positive urine culture with IV Rocephin. (3) Acute kidney injury superimposed on CKD: Code(s): N17.9 - Acute kidney failure, unspecified; N18.9 - Chronic kidney disease, unspecified Status: Acute Assessment and Plan: initial creatinine 1.7, down to 1.6 today patient baseline 1.2-1.3 continue to trend 04/17: Cr 1.5, GFR 44 04/18: creatinine 1.4 GFR 48 04/19: creatinine 1.4 GFR 48 04/20: Cr 1.5, GFR 44 04/21: Cr 1.5, GFR 44 (4) CKD (chronic kidney disease) stage 3, GFR 30-59 ml/min: Code(s): N18.30 - Chronic kidney disease, stage 3 unspecified Status: Acute Assessment and Plan: EGFR currently 38-41 04/17: Cr 1.5, GFR 44 04/18: creatinine 1.4 GFR 48 04/19: creatinine 1.4 GFR 48 04/20: Cr 1.5, GFR 44 04/21: Cr 1.5, GFR 44 (5) BPH (benign prostatic hyperplasia): Qualifiers: Lower urinary tract symptom presence: symptoms present Lower urinary tract symptom detail: urinary retention Qualified Code(s): N40.1 - Benign prostatic hyperplasia with lower urinary tract symptoms; R33.8 - Other retention of urine Code(s): N40.0 - Benign prostatic hyperplasia without lower urinary tract symptoms Status: Chronic Assessment and Plan: of note patient not on any home medication 04/17: Suprapubic catheter chronic (6) Dementia: Code(s): F03.90 - Unspecified dementia, unspecified severity, without behavioral di
[2024-04-21 14:00] VITALS: BP 137/78; PULSE 86; RESP 16; TEMP 36.4; O2SAT 98
[2024-04-21] MEDS: cefTRIAXone 2 GM/NS 100 ML 2 GM/100 ML BAG IVPB (14:08)
[2024-04-21] MEDS: ONDANSETRON INJ 4 MG/2 ML VIAL IV PUSH (18:46)
[2024-04-21 19:27] VITALS: BP 130/63; PULSE 85; RESP 16; TEMP 36.8; O2SAT 100
[2024-04-21] MEDS: MIRTAZAPINE 15 MG TABLET 30 MG PO (19:59)
[2024-04-21] MEDS: BISMUTH SUBSALICYLATE 262 MG CHEWABLE TABLET PO (19:59)
[2024-04-21] MEDS: amLODIPine BESYLATE 5 MG TABLET PO (20:58)
[2024-04-22 04:58] LABS: Basophils Absolute Auto 0.1 K/mm3 (0.0-0.1); Basophils Percent Auto 1.2 % (0.2-1.2); Eosinophils Absolute Auto 0.3 K/mm3 (0-0.3); Eosinophils Percent Auto 5.1 % (0-4.4); Hematocrit 42.7 % (42.0-52.0); Hemoglobin 13.9 g/dL (14.0-18.0); Immature Granulocyte Absolute 0.04 K/mm3 (0.00-0.031); Immature Granulocyte Percent A 0.7 % (0-0.5); Lymphocytes Absolute Auto 2.05 K/mm3 (0.9-3.2); Lymphocytes Percent Auto 35.2 % (18.3-44.2); Mean Corpuscular HGB Conc 32.6 g/dl (32-36); Mean Corpuscular Hemoglobin 28.7 pg (26-34); Mean Platelet Volume 8.9 fl (7.4-10.4); Monocytes Absolute Auto 0.6 K/mm3 (0.1-0.6); Monocytes Percent Auto 9.6 % (2.6-8.5); Neutrophils Absolute Auto 2.8 K/mm3 (1.3-6.7); Neutrophils Percent Auto 48.2 % (45.5-73.1); Platelet Count Result 199 k/mm3 (150-375); Red Blood Count 4.85 M/mm3 (4.6-6.20); Red Cell Distribution Width 14.6 % (11.5-14.5); White Blood Count 5.8 K/mm3 (4.5-10.0)
[2024-04-22 05:10] LABS: Alanine Aminotransferase 15 U/L (6-50); Albumin Level 3.5 g/dL (3.5-5.1); Alkaline Phosphatase 155 U/L (38-126); Anion Gap 5 mmol/L (4-12); Aspartate Amino Transferase 31 U/L (17-59); Bilirubin,Total 0.5 mg/dL (0.2-1.3); Blood Urea Nitrogen 27 mg/dL (9-20); Calcium 8.7 mg/dL (8.4-10.2); Carbon Dioxide 24 mmol/L (22-30); Chloride 108 mmol/L (98-107); Estimated CRCL calculation 28 ml/min; Estimated Glomerular Filt Rate 38; Glucose 108 mg/dL (65-110); Magnesium 2.3 mg/dL (1.6-2.3); Potassium 4.7 mmol/L (3.4-5.0); Sodium 137 mmol/L (137-145)
[2024-04-22 05:35] VITALS: BP 140/66; PULSE 72; RESP 16; TEMP 36.4; O2SAT 98
--- NOTE | 2024-04-22 07:48 | PM.IMPN ---
Progress Note: A&P Assessment and Plan (1) Intertrochanteric fracture of right hip: Code(s): S72.141A - Displaced intertrochanteric fracture of right femur, initial encounter for closed fracture Status: Acute Assessment and Plan: POD #5: ORIF right hip intertrochanteric fracture with DHS plate. No changes in care plan. Patient progressing well. Patient resting comfortably. No pain at rest. No numbness or tingling. Tolerated procedure well. Daughter at bedside. Plan for him to go to an acute rehab facility. Daughter is hoping for a location in [facility] to be closer to her. Plan to eventually return to assisted living in [place]. Weight bearing as tolerated with a walker. Ortho instructions: Surgery 04/16/24. D/C to SNF/rehab Xray in 2 weeks. f/u in office in 6 weeks. Wound Care: remove deborah at 2 weeks post op. Daily dressing changes until healed. PT: WBAT with a walker. DVT prophylaxis: continue Lovenox for 30 days total Pain medication: Tylenol. 04/17: Patient doing well, pain when starting to stand that is relieved once he is upright and pain when starting to sit that is relieved once seated. 04/18: unchanged, awaiting facility and insurance authorization for SNF versus acute rehab 04/19: accepted by acute rehab in [place], awaiting insurance authorization 04/20: still awaiting insurance auth for acute rehab 04/21: Insurance denied acute rehab, peer to peer to be completed on Monday (tomorrow) by noon 04/22: Peer to peer scheduled tomorrow at 0900 (2) Acute UTI: Code(s): N39.0 - Urinary tract infection, site not specified Status: Acute Assessment and Plan: UA showing 2+ leukocytes, 51-100 urine wbc's, 4+ urine bacteria urine culture pending continue Rocephin 04/17: Suspect colonization, no symptoms of UTI. Stop Rocephin 04/18: still no signs of urinary discomfort abdominal pain fever or elevated white blood cell count, urine culture growing Klebsiella oxytoca, and no antibiotics at this time as this appears to be colonization from chronic indwelling suprapubic catheter 04/19: 1 episode of nausea vomiting no bladder tenderness normal white blood cell count fever chills. Any further systemic signs I would begin treatment for Klebsiella oxytoca 04/20: 2 episodes vomiting yesterday, still no other signs of UTI and patient feeling much better today. Labs stable. Discussed with family, no antibiotics at this time. 04/21: Mild level of consciousness changes yesterday evening and today, patient wanting to sleep all the time. Discussed with family and we will treat positive urine culture with IV Rocephin. 04/22: Patient with significant chills but more awake, continue IV antibiotics today with likely change to oral Augmentin after IV dose tomorrow. (3) Acute kidney injury superimposed on CKD: Code(s): N17.9 - Acute kidney failure, unspecified; N18.9 - Chronic kidney disease, unspecified Status: Acute Assessment and Plan: initial creatinine 1.7, down to 1.6 today patient baseline 1.2-1.3 continue to trend 04/17: Cr 1.5, GFR 44 04/18: creatinine 1.4 GFR 48 04/19: creatinine 1.4 GFR 48 04/20: Cr 1.5, GFR 44 04/21: Cr 1.5, GFR 44 04/22: Cr 1.7, GFR 38 (4) CKD (chronic kidney disease) stage 3, GFR 30-59 ml/min: Code(s): N18.30 - Chronic kidney disease, stage 3 unspecified Status: Acute Assessment and Plan: EGFR currently 38-41 04/17: Cr 1.5, GFR 44 04/18: creatinine 1.4 GFR 48 04/19: creatinine 1.4 GFR 48 04/20: Cr 1.5, GFR 44 04/21: Cr 1.5, GFR 44 04/22: Cr 1.7, GFR 38 (5) BPH (benign prostatic hyperplasia): Qualifiers: Lower urinary tract symptom presence: symptoms present Lower urinary tract symptom detail: urinary retention Qualified Code(s): N40.1 - Benign prostatic hyperplasia with lower urinary tract symptoms; R33.8 - Other retention of urine Code(s): N40.0 - Benign prostatic hyperplasia without lower urinary tract symptoms S
[2024-04-22 08:41] VITALS: TEMP 36.7
[2024-04-22] MEDS: HYDROcodone/acetaminophen (*CRX) 7.5-325 MG TABLET 1 TAB PO (08:49)
[2024-04-22] MEDS: buPROPion HCL XL (24 HR) 150 MG TABCR PO (08:50)
[2024-04-22] MEDS: polyethylene glycoL 3350 17 GM POWD.PACK BY MOUTH (08:50)
[2024-04-22] MEDS: DONEPEZIL HCL 10 MG TABLET PO (08:50)
[2024-04-22] MEDS: DULoxetine HCL 60 MG CAPSULE.DR PO (08:50)
[2024-04-22] MEDS: POTASSIUM CHLORIDE 20 MEQ ER TABLET PO ×2 (08:50→17:21)
[2024-04-22] MEDS: busPIRone HCL 5 MG TABLET PO ×3 (08:51→17:22)
[2024-04-22] MEDS: BISMUTH SUBSALICYLATE 262 MG CHEWABLE TABLET 524 MG PO (08:51)
[2024-04-22] MEDS: FLUDROCORTISONE ACETATE 0.1 MG TABLET PO (08:51)
[2024-04-22] MEDS: ENOXAPARIN 40 MG/0.4 ML SYRINGE SUB-Q (08:51)
--- NOTE | 2024-04-22 13:46 | PM.PNORT ---
Progress Note: A&P Assessment and Plan (1) Intertrochanteric fracture of right hip: Code(s): S72.141A - Displaced intertrochanteric fracture of right femur, initial encounter for closed fracture Status: Acute Assessment and Plan: POD #6: ORIF right hip intertrochanteric fracture with DHS plate. No changes in care plan. Patient progressing well. Working well with PT/OT. Patient resting comfortably. No pain at rest. No numbness or tingling. Tolerated procedure well. Daughter at bedside. I recommend he go to an acute rehab facility. Daughter is hoping for a location in [facility] to be closer to her. Plan to eventually return to assisted living in [place]. Weight bearing as tolerated with a walker. Ortho instructions: Surgery 04/16/24. D/C to acute rehab Xray in 2 weeks. f/u in office in 6 weeks. Wound Care: remove deborah at 2 weeks post op. Daily dressing changes until healed. PT: WBAT with a walker. DVT prophylaxis: continue Lovenox for 30 days total Pain medication: Tylenol. Time Spent With Patient Time with patient: Greater than 35 minutes Subjective Subjective Date/Time Seen: 04/22/24 13:46 Interval history: Patient resting comfortably. Notes improvement in pain. He states he is doing much better with formal physical therapy. Waiting insurance approval for acute rehab. No numbness or tingling. Review of Systems Review of Systems: All systems reviewed & are unremarkable except as noted in HPI and below Exam Narrative: 88 y/o confused male. Resting comfortably in bed. No acute distress. No erythema or ecchymosis. No rashes or lesions noted. Warm, normal appearing skin. Tenderness at right hip. Dressing dry and intact without drainage. Calf nontender. Thigh non-tender. Distal pulses palpable. Normal capillary refill. Patient able to move and wiggle toes. Light touch sensation intact. Suprapubic catheter in place. Objective Data Vital Signs Vital Signs: Vital Signs - 24 hr 04/21/24 14:00 04/21/24 19:27 04/21/24 19:50 Temperature 97.5 F L 98.2 F Pulse Rate 86 85 Respiratory Rate 16 16 Blood Pressure 137/78 130/63 Pulse Oximetry 98 100 Oxygen Delivery Room Air 04/22/24 05:35 04/22/24 08:41 Temperature 97.5 F L 98.1 F Pulse Rate 72 Respiratory Rate 16 Blood Pressure 140/66 Pulse Oximetry 98 Oxygen Delivery Intake/Output Intake/Output: Intake & Output 04/19/24 04/20/24 04/21/24 04/22/24 23:59 23:59 23:59 23:59 Intake Total 610 1080 630 480 Output Total 1700 1123 350 600 Balance -1090 -43 280 -120 Meds/Results Medications: Active Medications Generic Name Dose Route Start Last Admin Trade Name Freq PRN Reason Stop Dose Admin Acetaminophen 500 mg 04/15/24 19:42 04/21/24 18:44 Acetaminophen 500 Mg Tablet PO 500 mg Q4H PRN Administration Mild Pain (1-3) or Fever Hydrocodone Bitart/Acetaminophen 1 tab 04/22/24 08:07 Hydrocodone/Acetaminophen (*Crx) 5-325 Mg Tablet PO Q6H PRN Pain Rated 6 or Greater Alprazolam 0.25 mg 04/16/24 00:45 04/19/24 14:17 Alprazolam (*Crx) 0.25 Mg Tablet PO 0.25 mg BID PRN Administration Anxiety Amlodipine Besylate 5 mg 04/19/24 21:00 04/21/24 20:58 Amlodipine Besylate 5 Mg Tablet PO 5 mg HS SRAVAN Administration Bismuth Subsalicylate 524 mg 04/17/24 15:40 04/22/24 08:51 Bismuth Subsalicylate 262 Mg Chewable Tablet PO 524 mg QAM SRAVAN Administration Bismuth Subsalicylate 262 mg 04/17/24 21:00 04/21/24 19:59 Bismuth Subsalicylate 262 Mg Chewable Tablet PO 262 mg HS SRAVAN Administration Bupropion HCl 150 mg 04/16/24 09:00 04/22/24 08:50 Bupropion Hcl Xl (24 Hr) 150 Mg Tabcr PO 150 mg QAM SRAVAN Administration Buspirone HCl 5 mg 04/16/24 09:00 04/22/24 12:43 Buspirone Hcl 5 Mg Tablet PO 5 mg TID SRAVAN Administration Donepezil HCl 10 mg 04/16/24 09:00 04/22/24 08:50 Donepezil Hcl 10 Mg Tablet PO 10 mg QAM
[2024-04-22 14:00] VITALS: BP 159/76; PULSE 74; RESP 20; TEMP 36.9; O2SAT 100
[2024-04-22] MEDS: cefTRIAXone 2 GM/NS 100 ML 2 GM/100 ML BAG IVPB (14:54)
[2024-04-22 19:37] VITALS: BP 153/72; PULSE 76; RESP 18; TEMP 36.8; O2SAT 100
[2024-04-22] MEDS: HYDROcodone/acetaminophen (*CRX) 5-325 MG TABLET 1 TAB PO (20:11)
[2024-04-22] MEDS: ALPRAZolam (*CRX) 0.25 MG TABLET PO (20:11)
[2024-04-22] MEDS: MIRTAZAPINE 15 MG TABLET 30 MG PO (20:12)
[2024-04-22] MEDS: amLODIPine BESYLATE 5 MG TABLET PO (20:12)
[2024-04-22] MEDS: BISMUTH SUBSALICYLATE 262 MG CHEWABLE TABLET PO (20:12)
[2024-04-23 04:23] VITALS: BP 170/86; PULSE 74; RESP 16; TEMP 36.5; O2SAT 100
[2024-04-23 04:49] LABS: Basophils Absolute Auto 0.1 K/mm3 (0.0-0.1); Basophils Percent Auto 1.6 % (0.2-1.2); Eosinophils Absolute Auto 0.3 K/mm3 (0-0.3); Eosinophils Percent Auto 5.9 % (0-4.4); Hematocrit 42.1 % (42.0-52.0); Hemoglobin 13.3 g/dL (14.0-18.0); Immature Granulocyte Absolute 0.06 K/mm3 (0.00-0.031); Lymphocytes Absolute Auto 2.39 K/mm3 (0.9-3.2); Lymphocytes Percent Auto 41.8 % (18.3-44.2); Mean Corpuscular HGB Conc 31.6 g/dl (32-36); Mean Corpuscular Hemoglobin 28.2 pg (26-34); Mean Corpuscular Volume 89.4 fl (80-100); Monocytes Absolute Auto 0.6 K/mm3 (0.1-0.6); Monocytes Percent Auto 10.1 % (2.6-8.5); Neutrophils Absolute Auto 2.3 K/mm3 (1.3-6.7); Neutrophils Percent Auto 39.6 % (45.5-73.1); Platelet Count Result 215 k/mm3 (150-375); Red Blood Count 4.71 M/mm3 (4.6-6.20); Red Cell Distribution Width 14.4 % (11.5-14.5); White Blood Count 5.7 K/mm3 (4.5-10.0)
[2024-04-23 05:05] LABS: Alanine Aminotransferase 14 U/L (6-50); Albumin Level 3.4 g/dL (3.5-5.1); Alkaline Phosphatase 148 U/L (38-126); Anion Gap 6 mmol/L (4-12); Aspartate Amino Transferase 26 U/L (17-59); Bilirubin,Total 0.5 mg/dL (0.2-1.3); Blood Urea Nitrogen 25 mg/dL (9-20); Calcium 8.5 mg/dL (8.4-10.2); Carbon Dioxide 22 mmol/L (22-30); Chloride 109 mmol/L (98-107); Estimated CRCL calculation 28 ml/min; Estimated Glomerular Filt Rate 38; Glucose 104 mg/dL (65-110); Magnesium 2.3 mg/dL (1.6-2.3); Potassium 4.3 mmol/L (3.4-5.0); Sodium 137 mmol/L (137-145)
[2024-04-23] MEDS: BISMUTH SUBSALICYLATE 262 MG CHEWABLE TABLET 524 MG PO (08:36)
[2024-04-23] MEDS: DONEPEZIL HCL 10 MG TABLET PO (08:36)
[2024-04-23] MEDS: FLUDROCORTISONE ACETATE 0.1 MG TABLET PO (08:36)
[2024-04-23] MEDS: busPIRone HCL 5 MG TABLET PO ×2 (08:36→13:10)
[2024-04-23] MEDS: DULoxetine HCL 60 MG CAPSULE.DR PO (08:36)
[2024-04-23] MEDS: buPROPion HCL XL (24 HR) 150 MG TABCR PO (08:36)
[2024-04-23] MEDS: POTASSIUM CHLORIDE 20 MEQ ER TABLET PO (08:36)
[2024-04-23] MEDS: ENOXAPARIN 40 MG/0.4 ML SYRINGE SUB-Q (08:38)
--- NOTE | 2024-04-23 10:20 | PM.DS ---
DS: Admitting Diagnosis Discharge Date 04/23/2024 Admitting Diagnosis closed hip fracture, BPH, acute kidney injury superimposed on CKD DS: Discharge Diagnosis Discharge Diagnosis (1) Intertrochanteric fracture of right hip: Code(s): S72.141A - Displaced intertrochanteric fracture of right femur, initial encounter for closed fracture Status: Acute (2) Acute UTI: Code(s): N39.0 - Urinary tract infection, site not specified Status: Acute (3) Acute kidney injury superimposed on CKD: Code(s): N17.9 - Acute kidney failure, unspecified; N18.9 - Chronic kidney disease, unspecified Status: Acute (4) CKD (chronic kidney disease) stage 3, GFR 30-59 ml/min: Code(s): N18.30 - Chronic kidney disease, stage 3 unspecified Status: Acute (5) BPH (benign prostatic hyperplasia): Qualifiers: Lower urinary tract symptom presence: symptoms present Lower urinary tract symptom detail: urinary retention Qualified Code(s): N40.1 - Benign prostatic hyperplasia with lower urinary tract symptoms; R33.8 - Other retention of urine Code(s): N40.0 - Benign prostatic hyperplasia without lower urinary tract symptoms Status: Chronic (6) Dementia: Code(s): F03.90 - Unspecified dementia, unspecified severity, without behavioral disturbance, psychotic disturbance, mood disturbance, and anxiety Status: Chronic DS: Summary Hospital Course Hospital Course: This is a very pleasant gentleman admitted on 04/15 after a fall at home suffering a right hip fracture. Patient had operative repair. He also had ANNE on top of CKD and chronic urinary retention due to BPH with suprapubic catheter place. Patient treated possible tract infection. Insurance denied acute rehab despite peer to peer conversation. Family chose acute rehab because he was improving with increased physical therapy and they chose to pay privately to the facility that was eventually able to accept closer to where his daughter lives. His plan is to go back to his prior memory care facility after rehabilitation. Status at Discharge Cognitive/behavioral status at discharge: Awake alert mostly oriented very pleasant Functional status at discharge: uses cane/walker Overall status at discharge: patient is progressing back to baseline Time Spent with Patient Time attestation: Total time spent providing and/or coordinating discharge services: 110 mins Time spent: Greater than 30 minutes ([id number]) Specific discharge activities: Significant time spent on each of the following: peer to peer to attempt to qualify for acute rehab, medication reconciliation updating case, coordinating patient care plan for discharge and provider to provider report to receiving facility regional facilities manager Dr. Kent Total time 110 minutes dedicated to coordination of care/documentation/examination/education for this patient Exam Narrative: GENERAL: Awake, alert, experiencing chills HEAD: Normocephalic, atraumatic. ENT:? Mucous membranes moist. CHEST: Clear to auscultation.? No respiratory distress. HEART: Regular rate and rhythm. ? Normal peripheral pulses. ABDOMEN: Soft, nontender, nondistended. Suprapubic catheter in place draining cloudy yellow urine EXTREMITIES: Normal range of motion. No peripheral edema. SKIN: Warm dry normal color NEURO: Alert and oriented x2 (baseline dementia) Moves all extremities well. Ambulated to restroom and back with therapy PSYCH: Normal mood and affect DS: Data Data Completed and Pending Labs on day of discharge: Labs from last 24 hours 04/23/24 04:23 WBC 5.7 RBC 4.71 Hgb 13.3 L Hct 42.1 MCV 89.4 MCH 28.2 MCHC 31.6 L RDW 14.4 Plt Count 215 MPV 9.0 Immature Gran % (Auto) 1.0 H Neut % (Auto) 39.6 L Lymph % (Auto) 41.8 Centre % (Auto) 10.1 H Eos % (Auto) 5.9 H Baso % (Auto) 1.6 H Lymph # (Auto) 2.39 Centre # (Auto) 0.6 Eos # (Auto) 0.3 Baso # (Auto) 0.1 Abs Immat Gran
[2024-04-23 12:54] LABS: SARS-CoV-2 RNA PCR Negative (Negative)
[2024-04-23] MEDS: cefTRIAXone 2 GM/NS 100 ML 2 GM/100 ML BAG IVPB (13:10)
[2024-04-23] MEDS: HYDROcodone/acetaminophen (*CRX) 5-325 MG TABLET 1 TAB PO (13:14)
--- NOTE | 2024-04-29 13:01 | PC.NURSE ---
Blood cx are negative.
== END 2024-04-23 14:48 | DRG 481 ==
LOC: ANHED 18:20 → ANH2MED 19:40
PROVIDERS: Internal Medicine; Nurse Practitioner; Orthopaedic Surgery; Physician Assistant Surgical; Admitting Provider Internal Medicine; Emergency Provider Emergency Medicine; Visit Provider Nurse Practitioner Acute Care
DX: S72.141A Displaced intertrochanteric fracture of right femur, initial encounter for closed fracture (principal); N17.9 Acute kidney failure, unspecified; T83.510A Infection and inflammatory reaction due to cystostomy catheter, initial encounter; N39.0 Urinary tract infection, site not specified; I25.10 Atherosclerotic heart disease of native coronary artery without angina pectoris; I12.9 Hypertensive chronic kidney disease with stage 1 through stage 4 chronic kidney disease, or unspecified chronic kidney disease; N18.30 Chronic kidney disease, stage 3 unspecified; N40.1 Benign prostatic hyperplasia with lower urinary tract symptoms; R33.9 Retention of urine, unspecified; F41.9 Anxiety disorder, unspecified; F03.90 Unspecified dementia, unspecified severity, without behavioral disturbance, psychotic disturbance, mood disturbance, and anxiety; W18.30XA Fall on same level, unspecified, initial encounter; Z20.822 Contact with and (suspected) exposure to COVID-19; Z86.73 Personal history of transient ischemic attack (TIA), and cerebral infarction without residual deficits; Z85.528 Personal history of other malignant neoplasm of kidney; Z93.50 Unspecified cystostomy status
CPT/HCPCS: 36415; 71045; 73502; 80048; 80053; 81001; 83735; 85025; 85610; 85730; 86850; 86900; 86901; 87040; 87077; 87086; 87088; 87186; 87635; 93005; 96374; 97110; 97116; 97161; 97165; 97530; 97535; 99199; 99285; A9270; C1713; G0378; J0690; J0696; J1100; J1650; J2270; J2405; J2704; J3010; J7030; J7120

== ENCOUNTER 2024-04-30 13:20 | Outpatient (CLI) | payer MEDICARE, SELFPAY ==
--- NOTE | ~2024-04-30 | XR_ITS ---
XR hip RT 2V w AP pelvis Ordering provider: Mayo Veliz MD History: . S72.141A -RT LATERAL HIP PAIN, FALL 2 WEEKS AGO . Comparison: April 15, 2024 FINDINGS: BONES: No acute fracture or dislocation. Fixation in the right femoral neck. HIP JOINT SPACES: Narrowing of the joint spaces bilaterally suggestive of osteoarthritic changes. SACROILIAC JOINT SPACES/LUMBAR SPINE: The sacroiliac joint spaces are normal. Mild degenerative morton es of the visualized lower lumbar spine. PUBIC SYMPHYSIS: Normal. SOFT TISSUES: Normal. IMPRESSION: No acute osseous abnormality pelvis and right hip. Reviewed, dictated and finalized at location A.
== END 2024-04-30 13:21 | disposition home or self-care (01) ==
PROVIDERS: Visit Provider Orthopaedic Surgery
DX: S72.141A Displaced intertrochanteric fracture of right femur, initial encounter for closed fracture (principal)
CPT/HCPCS: 73502

== ENCOUNTER 2024-05-29 14:19 | Outpatient (CLI) | payer MEDICARE, SELFPAY ==
--- NOTE | ~2024-05-29 | XR_ITS ---
XR hip RT 2V w AP pelvis Ordering provider: Mayo Veliz MD History: . Z47.89 - Encounter for other orthopedic aftercare . Comparison: April 30, 2024 FINDINGS: BONES: No acute fracture or dislocation. Fixation of the right hip by marisa and screws. HIP JOINT SPACES: Bilateral hip osteoarthritic changes. SACROILIAC JOINT SPACES/LUMBAR SPINE: The sacroiliac joint spaces are normal. Mild degenerative morton es of the visualized lower lumbar spine. PUBIC SYMPHYSIS: Normal. SOFT TISSUES: Normal. IMPRESSION: No acute osseous abnormality pelvis and right hip. Reviewed, dictated and finalized at location A.
== END 2024-05-29 14:20 | disposition home or self-care (01) ==
PROVIDERS: Visit Provider Orthopaedic Surgery
DX: Z47.89 Encounter for other orthopedic aftercare (principal)
CPT/HCPCS: 73502

== ENCOUNTER 2025-01-06 09:53 | Emergency (ER) | payer MEDICARE, SELFPAY ==
[2025-01-06] VITALS (19 sets, daily range): BP systolic 146–168; BP diastolic 45–60; PULSE 31–53; RESP 14–22; TEMP 36.4; O2SAT 91–98
--- NOTE | ~2025-01-06 | XR_ITS ---
CHEST RADIOGRAPH, PA AND LATERAL CLINICAL HISTORY: BRADYCARDIA, WEAKNESS . COMPARISON: 04/15/2024. TECHNIQUE: PA and lateral views of the chest. FINDINGS The cardiomediastinal silhouette is unremarkable. Increased interstitial markings are identified bilaterally, findings suggesting moderate pulmonary va scular congestion. Retrocardiac density for which treatment is suspected. Large right-sided pleural effusion is now identified, an interval change. IMPRESSION: Moderate pulmonary vascular congestion with a retrocardiac infiltrate and large right-sided pleural e ffusion Reviewed, dictated and finalized at location A. IMPRESSION: Moderate pulmonary vascular congestion with a retrocardiac infiltrate and large right-sided pleural effusion
--- NOTE | 2025-01-06 10:07 | ECG_ITS ---
Test Date: 2025-01-06 10:08:25 Measurements Intervals [place] Rate: 35 P: 0 MO: 0 QRS: -53 QRSD: 125 T: -20 QT: 613 QTc: 470 Interpretive Statements SINUS RHYTHM WITH 3rd DEGREE AV BLOCK RIGHT BUNDLE BRANCH BLOCK [120+ ms QRS DURATION, UPRIGHT V1, 40+ ms S IN I/aVL/V4/V5/V6] LEFT ANTERIOR FASCICULAR BLOCK [QRS AXIS <= -45, QR IN I, RS IN II] Compared to ECG 04/15/2024 16:57:55 Myocardial infarct finding no longer present Electronically Signed On 01-06-2025 11:51:55 CDT by Blas Combs M.D.
[2025-01-06 10:24] LABS: Basophils Absolute Auto 0.1 K/mm3 (0.0-0.1); Basophils Percent Auto 1.5 % (0.2-1.2); Eosinophils Absolute Auto 0.2 K/mm3 (0-0.3); Hematocrit 41.3 % (42.0-52.0); Hemoglobin 12.9 g/dL (14.0-18.0); Immature Granulocyte Absolute 0.02 K/mm3 (0.00-0.031); Immature Granulocyte Percent A 0.3 % (0-0.5); Lymphocytes Absolute Auto 1.93 K/mm3 (0.9-3.2); Lymphocytes Percent Auto 25.6 % (18.3-44.2); Mean Corpuscular HGB Conc 31.2 g/dl (32-36); Mean Corpuscular Hemoglobin 27.1 pg (26-34); Mean Corpuscular Volume 86.8 fl (80-100); Mean Platelet Volume 9.9 fl (7.4-10.4); Monocytes Absolute Auto 0.6 K/mm3 (0.1-0.6); Monocytes Percent Auto 8.3 % (2.6-8.5); Neutrophils Absolute Auto 4.7 K/mm3 (1.3-6.7); Neutrophils Percent Auto 62.3 % (45.5-73.1); Platelet Count Result 268 k/mm3 (150-375); Red Blood Count 4.76 M/mm3 (4.6-6.20); Red Cell Distribution Width 15.4 % (11.5-14.5); White Blood Count 7.6 K/mm3 (4.5-10.0)
--- NOTE | 2025-01-06 10:32 | ED_ITS ---
HPI - Chest Pain General Chief Complaint: Chest Pain Stated Complaint: CP/SOB/L flank pain Time Seen by Provider: 01/06/25 10:16 History of Present Illness HPI narrative: Pt had some fullness in his chest earlier this morning but no pain and it only lasted a few seconds before resolving. Pt has no complaints now and says he feels fine. Related Data Home Medications ?Medication ?Instructions ?Recorded ?Confirmed ?Last Taken ?Type duloxetine 60 mg capsule,delayed 60 mg PO QAM 05/14/20 05/31/24 Unknown History release donepezil 10 mg tablet 10 mg PO QAM 11/04/22 05/31/24 Unknown History fludrocortisone 0.1 mg tablet 0.1 mg PO QAM 11/04/22 05/31/24 Unknown History loperamide 2 mg capsule 2 mg PO BID PRN Diarrhea 11/04/22 05/31/24 Unknown History mirtazapine 15 mg tablet 30 mg PO HS 11/04/22 05/31/24 Unknown History bupropion HCl 150 mg 24 hr tablet, 150 mg PO QAM 04/15/24 05/31/24 Unknown History extended release buspirone 5 mg tablet 5 mg PO TID 04/15/24 05/31/24 Unknown History ondansetron HCl 4 mg tablet 4 mg PO Q8H PRN Nausea And Vomiting 04/15/24 05/31/24 Unknown History polyethylene glycol 1 ea miscellaneous DAILY 04/15/24 05/31/24 Unknown History Bifido animal, bifidum-Lactococ ea PO 05/29/24 05/31/24 Unknown History lactis 3 billion cell oral powder pack Allergies Allergy/AdvReac Type Severity Reaction Status Date / Time celecoxib Allergy Intermediate FACIAL Verified 01/06/25 10:16 RASH/REDNESS budesonide Allergy Unknown CARDIAC Verified 01/06/25 10:16 PROBLEMS iodine Allergy Unknown Unknown Verified 01/06/25 10:16 codeine Allergy Unknown Verified 01/06/25 10:16 Contrast Media Allergy Intermediate TACHYCARDIA Uncoded 01/06/25 10:16 Review of Systems 2 Review of Systems: All systems reviewed & are unremarkable except as noted in HPI and below PMFSH Past Medical History Medical History BPH (benign prostatic hyperplasia) with chronic urinary retention with chronic suprapubic catheter CKD (chronic kidney disease) stage 3, GFR 30-59 ml/min CVA (cerebral vascular accident) Daughter reports MRI demonstrate evidence of old infarcts Dementia Essential hypertension History of anxiety Lymphocytic colitis Orthostatic hypotension Renal cell carcinoma Surgical History Surgical History History of partial nephrectomy Left History of prostatectomy (12/2020) Suprapubic catheter (12/2020) Family History Family History Father Family history of malignant neoplasm Other Family history of cardiovascular disease Social History Social History Social History: The patient lives at [facility] since February 2019. His of 57 years July 2023. He is a lifelong nonsmoker. He drinks 2 bottles of beer a week. 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 His daughter Paige Morrison ([phone]) and Sunita Arellano ([phone]) are his guardians. Code status: Full code Smoking status: Never smoker Tobacco type: pipe Second hand tobacco smoke exposure: No Alcohol intake: current Drinks per week: 6 Substance use: never Do You Feel Safe in your Home?: Yes Lack of Transportation: No Lack of Food: Never True Current Housing: I Have Housing Concerned About Future Housing: No Difficulty Paying Gas/Electric Bills: No Difficulty Paying for Meds: No Currently Unemployed: No Education: Master's Degree or Higher Difficulty w/ Childcare or Family Care: No Gender identity (if verbalized by the patient): Male Spiritual care concerns: No Exam 2 Const: General: healthy appearing and no acute distress Nutritional Appearance: well nourished Orientation/consciousness: patient oriented x3 Limitations: no limitations Chest: Chest palpation & inspection: normal inspection of the chest and abnormal inspection of the chest Resp: Effort & Inspection: normal respiratory effort Auscultation: clear to auscultation bilaterally Cardio: Rate: bradycardic Rhythm: regular rhythm GI: GI Palp: Yes Soft to palpation and No Tenderness to palpation present (GI) Auscultation: normal bowel sounds Skin: General skin exam: normal color Wounds: no wounds Neuro: General: patient oriented x3, moves all extremities, no meningeal signs, no focal motor deficits and CN's II-XI intact bilaterally Speech: n ormal speech Extrem: General: normal to inspection and no clubbing, cyanosis or edema Psych: Mental Status: mental status grossly normal Affect: normal affect Attitude: cooperative Course Vital Signs Vital signs: Vital Signs Temperature 97.6 F 01/06/25 09:52 Pulse Rate 34 L 01/06/25 09:52 Respiratory Rate 17 01/06/25 09:52 Blood Pressure 162/56 H 01/06/25 09:52 Pulse Oximetry 97 01/06/25 09:52 Oxygen Delivery Room Air 01/06/25 09:52 Temperature 97.6 F 01/06/25 09:52 Pulse Rate 33 L 01/06/25 15:30 Respiratory Rate 17 01/06/25 15:30 Blood Pressure 165/60 H 01/06/25 15:30 Pulse Oximetry 98 01/06/25 15:30 Oxygen Delivery Room Air 01/06/25 10:09 MDM - Chest Pain MDM Narrative Medical decision making narrative: Pt had some chest fullnes earlier which resolved quickly and now has no complaints but has HR in 30's and looks like complete heart block on ekg. will check some labs and discuss with cardiology. Stephanie Langford agrees it looks like complete heart block but no electromechanical technician here today to do pacemaker. will contact [facility] and [facility] to see if we can transfer. discused with Dr Suarez at [facility], will accept pt, will talk to for acceptance. Discussed with Dr Boykin at [facility] and will accept pt but no beds. Daughter requests [facility] because her mother's electromechanical technician Dr Sylvester is there. Discussed with Dr Barrow at [facility] and will accept but no beds. Got bed at [facility] and pt transferred to [facility]. Lab Data 01/06/25 10:10 01/06/25 10:10 Labs: Lab Results 01/06/25 01/06/25 01/06/25 Range/Units 10:10 12:47 12:54 WBC 7.6 (4.5-10.0) K/mm3 RBC 4.76 (4.6-6.20) M/mm3 Hgb 12.9 L (14.0-18.0) g/dL Hct 41.3 L (42.0-52.0) % MCV 86.8 (80-100) fl MCH 27.1 (26-34) pg MCHC 31.2 L (32-36) g/dl RDW 15.4 H (11.5-14.5) % Plt Count 268 (150-375) k/mm3 MPV 9.9 (7.4-10.4) fl Immature Gran % (Auto) 0.3 (0-0.5) % Neut % (Auto) 62.3 (45.5-73.1) % Lymph % (Auto) 25.6 (18.3-44.2) % [place] % (Auto) 8.3 (2.6-8.5) % Eos % (Auto) 2.0 (0-4.4) % Baso % (Auto) 1.5 H (0.2-1.2) % Lymph # (Auto) 1.93 (0.9-3.2) K/mm3 [place] # (Auto) 0.6 (0.1-0.6) K/mm3 Eos # (Auto) 0.2 (0-0.3) K/mm3 Baso # (Auto) 0.1 (0.0-0.1) K/mm3 Abs Immat Gran (auto) 0.02 (0.00-0.031) K/mm3 Absolute Neuts (auto) 4.7 (1.3-6.7) K/mm3 Absolute Nucleated RBC 0.000 (0.0-0.012) K/mm3 Nucleated RBC % 0.0 (0.0-0.2) % PT 14.0 (11.1-14.7) Seconds INR 1.0 APTT 38.6 H (22.3-36.8) Seconds Sodium 138 (137-145) mmol/L Potassium 5.3 H (3.4-5.0) mmol/L Chloride 110 H (98-107) mmol/L Carbon Dioxide 17 L (22-30) mmol/L Anion Gap 11 (4-12) mmol/L BUN 37 H D (9-20) mg/dL Creatinine 2.20 H (0.7-1.3) mg/dL Estim Creat Clear Calc 22 ml/min Estimated GFR 28 L (59 - ) Glucose 120 H (65-110) mg/dL POC Capillary Glucose 106 H (65-105) mg/dl Calcium 8.7 (8.4-10.2) mg/dL Magnesium 2.3 (1.6-2.3) mg/dL Total Bilirubin 0.6 (0.2-1.3) mg/dL AST 15 L (17-59) U/L ALT 13 (6-50) U/L Alkaline Phosphatase 208 H (38-126) U/L Troponin I 0.014 0.016 (0.000-0.034) ng/mL Total Protein 7.0 (6.3-8.2) g/dL Albumin 3.7 (3.5-5.1) g/dL Lipase 39 (23-300) U/L 01/06/25 Range/Units 13:52 WBC (4.5-10.0) K/mm3 RBC (4.6-6.20) M/mm3 Hgb (14.0-18.0) g/dL Hct (42.0-52.0) % MCV (80-100) fl MCH (26-34) pg MCHC (32-36) g/dl RDW (11.5-14.5) % Plt Count (150-375) k/mm3 MPV (7.4-10.4) fl Immature Gran % (Auto) (0-0.5) % Neut % (Auto) (45.5-73.1) % Lymph % (Auto) (18.3-44.2) % [place] % (Auto) (2.6-8.5) % Eos % (Auto) (0-4.4) % Baso % (Auto) (0.2-1.2) % Lymph # (Auto) (0.9-3.2) K/mm3 [place] # (Auto) (0.1-0.6) K/mm3 Eos # (Auto) (0-0.3) K/mm3 Baso # (Auto) (0.0-0.1) K/mm3 Abs Immat Gran (auto) (0.00-0.031) K/mm3 Absolute Neuts (auto) (1.3-6.7) K/mm3 Absolute Nucleated RBC (0.0-0.012) K/mm3 Nucleated RBC % (0.0-0.2) % PT (11.1-14.7) Seconds INR APTT (22.3-36.8) Seconds Sodium (137-145) mmol/L Potassium (3.4-5.0) mmol/L Chloride (98-107) mmol/L Carbon Dioxide (22-30) mmol/L Anion Gap (4-12) mmol/L BUN (9-20) mg/dL Creatinine (0.7-1.3) mg/dL Estim Creat Clear Calc ml/min Estimated GFR (59 - ) Glucose (65-110) mg/dL POC Capillary Glucose 128 H (65-105) mg/dl Calcium (8.4-10.2) mg/dL Magnesium (1.6-2.3) mg/dL Total Bilirubin (0.2-1.3) mg/dL AST (17-59) U/L ALT (6-50) U/L Alkaline Phosphatase (38-126) U/L Troponin I (0.000-0.034) ng/mL Total Protein (6.3-8.2) g/dL Albumin (3.5-5.1) g/dL Lipase (23-300) U/L Discharge Plan Discharge Clinical Impression: Complete heart block Patient Disposition: Acute Care Hospital Condition: Stable Patient Language: Grenadian Prescriptions: No Action B.animal,bifid-Lactococ.lactis 3 billion cell powder in packet PO donepezil 10 mg tablet 10 mg PO QAM mirtazapine 15 mg tablet 30 mg PO HS fludrocortisone 0.1 mg tablet 0.1 mg PO QAM loperamide 2 mg Capsule 2 mg PO BID PRN (Reason: Diarrhea) duloxetine 60 mg capsule,delayed release(DR/EC) 60 mg PO QAM buspirone 5 mg tablet 5 mg PO TID ondansetron HCl 4 mg Tablet 4 mg PO Q8H PRN (Reason: Nausea And Vomiting) polyethylene glycol Powder 1 ea miscellaneous DAILY Rx Instructions: 1 packet daily bupropion HCl 150 mg tablet extended release 24 hr 150 mg PO QAM hydrocodone-acetaminophen 5-325 mg Tablet 1 tablet PO Q8H PRN (Reason: Pain Rated 6 Or Greater) Qty: 8 0RF amlodipine [Norvasc] 5 mg Tablet 10 mg PO HS Qty: 0 0RF acetaminophen 500 mg Tablet 500 mg PO Q4H PRN (Reason: Mild Pain (1-3) Or Fever) Qty: 0 0RF bismuth subsalicylate [Pepto-Bismol] 262 mg Tablet,Chewable 262 mg PO HS Qty: 0 0RF bismuth subsalicylate [Pepto-Bismol] 262 mg Tablet,Chewable 524 mg PO QAM Qty: 0 0RF hydroxyzine pamoate 25 mg Capsule 50 mg PO Q4H PRN (Reason: Itching) Qty: 0 0RF potassium chloride [K-Tab] 20 mEq Tablet Extended Release 20 meq PO BID Qty: 0 0RF alprazolam 0.25 mg tablet 0.25 mg PO BID PRN (Reason: Anxiety) Qty: 5 0RF amoxicillin-pot clavulanate [Augmentin] 500-125 mg tablet 1 tablet PO Q12H Qty: 14 0RF enoxaparin 30 mg/0.3 mL Syringe 30 mg subcut DAILY 22 Days Qty: 0 0RF Follow-up/Referrals: PHYSICIAN NOT ON STAFF,NONSTAFF [Non-Staff] -
[2025-01-06 10:37] LABS: Partial Thromboplastin Time 38.6 Seconds (22.3-36.8)
[2025-01-06 10:54] LABS: Alanine Aminotransferase 13 U/L (6-50); Albumin Level 3.7 g/dL (3.5-5.1); Alkaline Phosphatase 208 U/L (38-126); Anion Gap 11 mmol/L (4-12); Aspartate Amino Transferase 15 U/L (17-59); Bilirubin,Total 0.6 mg/dL (0.2-1.3); Blood Urea Nitrogen 37 mg/dL (9-20); Calcium 8.7 mg/dL (8.4-10.2); Carbon Dioxide 17 mmol/L (22-30); Chloride 110 mmol/L (98-107); Estimated CRCL calculation 22 ml/min; Estimated Glomerular Filt Rate 28; Glucose 120 mg/dL (65-110); Lipase 39 U/L (23-300); Potassium 5.3 mmol/L (3.4-5.0); Sodium 138 mmol/L (137-145)
[2025-01-06 11:05] LABS: Troponin I 0.014 ng/mL (0.000-0.034)
--- NOTE | 2025-01-06 11:50 | PC.NURSE ---
Lavon from [facility] calls at [phone] for pt update. all questions answered.
--- NOTE | 2025-01-06 11:59 | PC.NURSE ---
Maikel from [facility] calls at [phone] for nurse reports on patient. Maikel states the provider requests initiating treating high potassium prior to transfer. Flor from [facility] calls at [phone] and states that daughter/guardian requests that pt gets transferred to [facility] under the care of Best Sylvester. notified provider of these updates.
[2025-01-06 12:34] LABS: Magnesium 2.3 mg/dL (1.6-2.3)
--- NOTE | 2025-01-06 12:35 | PC.NURSE ---
quick combo pads placed on patient, crash cart bedside
[2025-01-06] MEDS: DEXTROSE 50% 25 GM/50 ML SYRINGE IV PUSH (12:52)
[2025-01-06] MEDS: INSULIN HUMAN REGULAR (*BKC) 100 UNITS/ML IV PUSH (12:52)
[2025-01-06] MEDS: SODIUM BICARBONATE 8.4% 50 MEQ/50 ML SYRINGE 77 MEQ IV PUSH (12:54)
[2025-01-06] MEDS: CALCIUM GLUC 1,000 MG/NS 50 ML 1,000 MG/50 ML BAG 100 MG IVPB (12:54)
[2025-01-06 13:07] LABS: Glucose Point of Care 106 mg/dl (65-105)
--- OUTSIDE RECORDS SUMMARY | 2025-01-06 13:07 | XMS_ITS | Encounter Summary ---
Author Organization [facility] Address [address] [place] [address] Care Team Providers Care Assessment Clinician Name Role Phone Tanner Hadley MD Primary Care Prov ider Encounter Details Date Type Department Care Team (Late st Contact Info) Description 01/06/2025 Hospital Encounter [facility] ADMIT [address] [place] [address] Devan Camacho MD [facility] [place] [address] Social History Tobacco Use Types Packs/Day Years Used Date Smoking Tobacco: Never Alcohol Use Standard Drinks/Week Comments No 0 (1 standard drink = 0.6 oz pur e alcohol) Personal Safety Answer Date Recorded Getting School Help Needed Not on file 12/29 Sex and Gender Information Value Date Recorded Sex Assigned at Not on file 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
--- OUTSIDE RECORDS SUMMARY | 2025-01-06 13:07 | XMS_ITS | Referral Summary ---
Author Organization [facility] Address [address] [place] [address] Care Team Providers Care Extractor Puller Name Role Phone Tanner Hadley MD Primary Care Prov ider Encounters Date Type Department Care Team Description 01/06/2025 Orders Only [address] [id number] Devan Camacho MD 01/06/2025 Hospital Encounter [facility] ADMIT [address] [place] [address] [phone] Devan Camacho MD from Last 3 Months Allergies Active Allergy Reactions Criticality Noted Date Comments Celecoxib Codeine Iodine Unclassified Drug Unknown Medications busPIRone (BUSPAR) 10 mg tabletIndications: Generalized Anxiety Disorder TK 1 T PO BID 5 8 Active chlordiazePOXIDE-c lidinium (LIBRAX) 5-2.5 mg per capsule TK 1 C PO TID 3 8 Active citalopram (CeleXA) 20 mg tablet TK 1 T PO QD 5 8 Active LORazepam (ATIVAN) 0.5 mg tablet TK 1 T PO BID 3 8 Active loperamide (IMODIUM) 2 mg capsule Take 2 capsules by mouth daily. Active bismuth subsalicylate 262 mg tablet Take 3 tablets by mouth nightly. 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 Overview (02/02/2017): Lymphocytic colitis Nausea 09/10/2013 Palpitations 11/26/2012 Dizziness 11/23/2012 Diabetes mellitus 11/23/2012 Immunizations Immunization Administration Dates Next Due Influenza, Trivalent, Preservative Free, Intramu scular 11/02/2017 Social History Tobacco Use Types Packs/Day Years Used Date Smoking Tobacco: Never Alcohol Use Standard Drinks/Week Comments No 0 (1 standard drink = 0.6 oz pur e alcohol) Personal Safety Answer Date Recorded Getting School Help Needed Not on file 12/29 Sex and Gender Information Value Date Recorded Sex Assigned at Not on file 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 Gender Identity Not on file Sexual Orientation Not on file Last Filed Vital Signs Vital Sign Reading Time Taken Comments Blood Pressure 144/70 05/28/2020 11:14 AM CDT Pulse 85 05/28/2020 11:14 AM CDT Temperature 36.2 C (97.2 F) 05/28/2020 11:14 AM CDT Respiratory Rate - - Oxygen Saturation 97% 11/26/2012 1:57 PM METAL TRADES INSTRUCTOR Inhaled Oxygen Concentration - - Weight 69.2 kg (152 lb 9.6 oz) 05/28/2020 11:14 AM CDT Height 180.3 cm (5' 11 ) 05/28/2020 11:14 AM CDT Body Mass Index 21.28 05/28/2020 11:14 AM CDT Plan of Treatment Not on file Insurance [address] [place] [id number] MED[employer] [address] [place] [id number] [employer]ET MEDICARE [address] [place] [id number] Care Teams Extractor Puller Relationship Specialty Start Date End Date Tanner Hadley MD [address] [place] [address] PCP - General 10/27/14
--- OUTSIDE RECORDS SUMMARY | 2025-01-06 13:07 | XMS_ITS | Encounter Summary ---
Author Organization [facility] Healthcare Address [address] [place] [address] Care Team Providers Care Nocturnist Name Role Phone Tanner Hadley MD Primary Care Prov ider Encounter Details Date Type Department Care Team (Late st Contact Info) Description 01/06/2025 Orders Only [id number] [place] [phone] Devan Camacho MD [address] [place] [address] [facility] [place], [place] [phone] Social History Tobacco Use Types Packs/Day Years Used Date Smoking Tobacco: Never Alcohol Use Standard Drinks/Week Comments No 0 (1 standard drink = 0.6 oz pur e alcohol) Personal Safety Answer Date Recorded Getting School Help Needed Not on file 12/29 Sex and Gender Information Value Date Recorded Sex Assigned at Not on file 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
--- OUTSIDE RECORDS SUMMARY | 2025-01-06 13:07 | XMS_ITS | Clinical Summary ---
Author Organization [facility] Address [address] [place] [address] Care Team Providers Care Granite Polisher Machine Name Role Phone Tanner Hadley MD Primary Care Prov ider Allergies Active Allergy Reactions Criticality Noted Date [...] cream Apply to mouth Active DULoxetine DR (CYMBALTA) 60 mg capsule daily 0 Active dextromethorphan [...] Palpitations 11/26/2012 Dizziness 11/23/2012 Diabetes mellitus 11/23/2012 Encounters Date Type Department Care Team Description 01/06/2025 Orders Only [facility] [address] [place] [address] Devan Camacho MD 01/06/2025 Hospital Encounter [facility] ADMIT [address] [place] [address] Devan Camacho MD from Last 3 Months Immunizations Immunization Administration Dates Next Due Influenza, Trivalent, Preservative Free, Intramu scular 11/02/2017 Surgical History Surgery Date Site/Laterality Comments APPENDECTOMY Appendectomy Medical History Medical History Date Comments 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) Family History Medical History Relation Name Comments Parkinsonism Brother Parkinson's dis ease; Cancer Father Cancer, unknown ; Cause of : Cancer, unknown Stomach cancer Father Family histor y of malignant neoplasm of stomach - (Added by TW Conv) Heart disease Mother Cardiovascular disease; Cause of : Cardiovascular disease Relation Name Status Comments Brother Father Mother Social History Tobacco Use Types Packs/Day Years Used Date Smoking Tobacco: Never Alcohol Use Standard Drinks/Week Comments No 0 (1 standard drink = 0.6 oz pur e alcohol) Personal Safety Answer Date Recorded Getting School Help Needed Not on file 12/29 Sex and Gender Information Value Date Recorded Sex Assigned at Not on file Legal Sex Male 3:31 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 Gender Identity Not on file Sexual Orientation Not on file Obstetrics History Last Filed Vital Signs Vital Sign Reading Time Taken Comments Blood Pressure 144/70 05/28/2020 11:14 AM CDT Pulse 85 05/28/2020 11:14 AM CDT Temperature 36.2 C (97.2 F) 05/28/2020 11:14 AM CDT Respiratory Rate - - Oxygen Saturation 97% 11/26/2012 1:57 PM PALLIATIVE CARE COORDINATOR Inhaled Oxygen Concentration - - Weight 69.2 kg (152 lb 9.6 oz) 05/28/2020 11:14 AM CDT Height 180.3 cm (5' 11 ) 05/28/2020 11:14 AM CDT Body Mass Index 21.28 05/28/2020 11:14 AM CDT Plan of Treatment Health Maintenance Due Date Last Done Comments Albumin Creatinine Ratio, Urine 1935 Depression Screening 1935 Fall Risk Assessment 1935 Hemoglobin A1C 1935 eGFR 1935 Dilated Eye Exam 1935 Foot Exam 1935 Lipid Panel 1935 Hepatitis B Screening 1953 Pneumococcal vaccine 65+ (1 of 2 - PCV) 1954 Zoster Vaccine (1 of 2) 1985 Well Visit 65+ 2000 Covid-19 Vaccine (6 2023-2 5 season) 2024 08/02/2022, 02/10/2022, 08/25/2021, Additional history exists Influenza Vaccine (#1) 2024 11/02/2017 DTaP/Tdap/Td Vaccine (2 - Td or Tdap) 03/25/2032 03/25/2022 Insurance MEDICARE SOL[employer] MED[address] [place] [phone] Care Teams Granite Polisher Machine Relationship Specialty Start Date End Date Tanner Hadley MD [address] [place] [address] PCP - General 10/27/14
[2025-01-06 13:23] LABS: Troponin I 0.016 ng/mL (0.000-0.034)
--- NOTE | 2025-01-06 13:32 | ECG_ITS ---
Test Date: 2025-01-06 13:38:10 Measurements Intervals Senath Rate: 34 P: 0 RI: 0 QRS: -57 QRSD: 129 T: -25 QT: 601 QTc: 454 Interpretive Statements SINUS RHYTHM WITH COMPLETE HEART BLOCK RIGHT BUNDLE BRANCH BLOCK LEFT ANTERIOR FASCICULAR BLOCK Electronically Signed On 01-06-2025 14:05:02 CDT by Blas Combs M.D.
[2025-01-06 13:57] LABS: Glucose Point of Care 128 mg/dl (65-105)
--- NOTE | 2025-01-06 14:34 | PC.NURSE ---
this RN spoke to Marichuy at [facility] transfer center to accept pt room assignment. pt is going to [facility] in [facility] pt is going to [address] [place], room 406 transfer center gave the nurses station number and the charge nurse pt admitting diagnosis is complete heart block, accepting physician is Dr. Carrillo
--- NOTE | 2025-01-06 14:44 | PC.NURSE ---
[facility] who is unavailable at this time. gave a call back number to give report.
--- NOTE | 2025-01-06 16:56 | PC.NURSE ---
16:48 Canceled [facility] transfer per Dr. Kaur as patient got a bed at [facility].
--- NOTE | 2025-01-06 16:57 | PC.NURSE ---
16:48 Canceled [facility] Transfer per Dr. Kaur, as patient received a bed at [facility].
== END 2025-01-06 15:30 | disposition short-term general hospital (02) ==
PROVIDERS: Emergency Provider Emergency Medicine
DX: I44.2 Atrioventricular block, complete (principal); F03.90 Unspecified dementia, unspecified severity, without behavioral disturbance, psychotic disturbance, mood disturbance, and anxiety; I12.9 Hypertensive chronic kidney disease with stage 1 through stage 4 chronic kidney disease, or unspecified chronic kidney disease; N18.30 Chronic kidney disease, stage 3 unspecified; N40.0 Benign prostatic hyperplasia without lower urinary tract symptoms; F41.9 Anxiety disorder, unspecified; Z85.528 Personal history of other malignant neoplasm of kidney; Z86.73 Personal history of transient ischemic attack (TIA), and cerebral infarction without residual deficits; Z90.5 Acquired absence of kidney; Z90.79 Acquired absence of other genital organ(s); Z79.899 Other long term (current) drug therapy; I45.2 Bifascicular block
CPT/HCPCS: 36415; 71046; 80053; 82948; 83690; 83735; 84484; 85025; 85610; 85730; 93005; 96365; 96375; 99285; J0612; J1815